=== PATIENT | female | born 1985 | race African-American/Black ===

== ENCOUNTER 2016-06-05 12:33 | Inpatient (IN) | payer OTHER ==
[~2016-06-05] VITALS: Ht 152.4 cm; Wt 66.7 kg
[2016-06-05 13:37] LABS: BASOPHILS % (AUTO) 0.9 % (0.0-2.0); EOSINOPHILS % (AUTO) 1.3 % (0.0-3.0); LYMPHOCYTES % (AUTO) 46.3 % (20.0-45.0); MEAN CORPUSCULAR HEMOGLOBIN 30.9 PG (27.0-31.0); MEAN CORPUSCULAR VOLUME 93 FL (80-99); MEAN PLATELET VOLUME 6.5 FL (6.5-10.1); MONOCYTES % (AUTO) 5.7 % (1.0-10.0); NEUTROPHILS % (AUTO) 45.8 % (45.0-75.0); PLATELET COUNT 335 K/UL (150-450); RED BLOOD COUNT 4.28 M/UL (4.20-5.40); RED CELL DISTRIBUTION WIDTH 11.2 % (11.6-14.8); WHITE BLOOD COUNT 9.2 K/UL (4.8-10.8)
[2016-06-05 13:52] LABS: ALANINE AMINOTRANSFERASE 15 U/L (3-33); ALBUMIN/GLOBULIN RATIO 1.7 (1.0-2.7); ANION GAP 16 (5-15); ASPARTATE AMINO TRANSFERASE 20 U/L (5-40); CALCIUM 9.6 mg/dL (8.6-10.2); CARBON DIOXIDE 26 mEQ/L (20-30); CHLORIDE 101 mEQ/L (98-107); CREATININE 0.8 mg/dL (0.5-0.9); GLOMERULAR FILTRATION RATE > 60 mL/min (>60); HEMOLYSIS 9; POTASSIUM 3.6 mEQ/L (3.4-4.9); SODIUM 143 mEQ/L (135-145); TOTAL PROTEIN 7.5 g/dL (6.6-8.7)
[2016-06-05 14:03] LABS: CKMB < 1.5 ng/mL (< 3.8)
--- NOTE | 2016-06-05 14:38 | Emergency Room Report ---
History of Present Illness General Chief Complaint: Pain Source: Patient Present Illness HPI 30-year-old female presents ED for evaluation. Patient referred here by Dr. Lockett. Patient states that 6 years ago she had silicone injections in her buttocks. States since the injection she's had persistent pain. Pain is a 10 out of 10. Sharp. Notes pain radiating from the buttock through the back and down both legs. No other aggravating relieving factors. Denies fevers or chills. Denies leg or motor weakness. Denies any other associated symptoms Allergies: Coded Allergies: PENICILLINS (Verified Allergy, Unknown, 06/05/16) Patient History Past Medical History: none Past Surgical History: none Pertinent Family History: none Social History: Denies: alcohol use, drug use, smoking Last Menstrual Period: UNKNOWN Now: No Immunizations: UTD Reviewed Nursing Documentation: PMH: Agreed, PSxH: Agreed Nursing Documentation-PMH Past Medical History: No Stated History Review of Systems All Other Systems: negative except mentioned in HPI Physical Exam Vital Signs Date Time Temp Pulse Resp B/P Pulse Ox O2 Delivery O2 Flow Rate FiO2 06/05/16 12:44 98.1 100 16 121/83 97 Room Air Sp02 EP Interpretation: reviewed, normal General Appearance: no apparent distress, alert, GCS 15, non-toxic Head: normocephalic Eyes: bilateral eye PERRL, bilateral eye normal inspection ENT: normal ENT inspection Neck: normal inspection Respiratory: chest non-tender, lungs clear, normal breath sounds, speaking full sentences Cardiovascular #1: normal inspection Gastrointestinal: normal bowel sounds, non tender, soft, non-distended, no guarding, no rebound Rectal: deferred Genitourinary: no CVA tenderness Musculoskeletal: back normal, gait/station normal, normal range of motion, non- tender Neurologic: alert, oriented x3, responsive, motor strength/tone normal, sensory intact, speech normal Psychiatric: normal inspection Skin: normal inspection Lymphatic: normal inspection Medical Decision Making Diagnostic Impression: Primary Impression: Adverse effect of silicone Qualified Codes: T49.3X5A - Adverse effect of emollients, demulcents and protectants, initial encounter Additional Impression: Intractable back pain ER Course Hospital Course 30-year-old female presents to ED with back pain, pain to buttocks s/p silicon injections Differential diagnoses include: allergic reaction, cellulitis, autoimmune reaction Clinical course Patient placed on stretcher. cardiac monitor. After initial history and physical I ordered labs, IV fluids, IV abx Labs - no leukocytosis, Hb/Hct stable. electrolytes ok. Patient will be admitted to the floor for further workup including MRI Case discussed with Dr. Smith and he agreed to accept the patient to his service for further care and support I feel this is a highly complex case requiring extensive working including EKG/ Rhythm strip, Xray/CT/US, Blood/urine lab work, repeat exams while in ED, and administration of strong opiates/narcotics for pain control, admission to hospital or close patient follow up. Diagnosis -intractable back pain, adverse reaction of silicon Patient admitted to floor in serious condition Labs Test 06/05/16 13:18 White Blood Count 9.2 K/UL (4.8-10.8) Red Blood Count 4.28 M/UL (4.20-5.40) Hemoglobin 13.2 G/DL (12.0-16.0) Hematocrit 40.0 % (37.0-47.0) Mean Corpuscular Volume 93 FL (80-99) Mean Corpuscular Hemoglobin 30.9 PG (27.0-31.0) Mean Corpuscular Hemoglobin Concent 33.0 G/DL (32.0-36.0) Red Cell Distribution Width 11.2 % (11.6-14.8) Platelet Count 335 K/UL (150-450) Mean Platelet Volume 6.5 FL (6.5-10.1) Neutrophils (%) (Auto) 45.8 % (45.0-75.0) Lymphocytes (%) (Auto) 46.3 % (20.0-45.0) Monocytes (%) (Auto) 5.7 % (1.0-10.0) Eosinophils (%) (Auto) 1.3 % (0.0-3.0) Basophils (%) (Auto) 0.9 % (0.0-2.0) Sodium Level 143 mEQ/L (135-145) Potassium Level 3.6 mEQ/L (3.4-4.9) Chloride Level 101 mEQ/L (98-107) Carbon Dioxide Level 26 mEQ/L (20-30) Anion Gap 16 (5-15) Blood Urea Nitrogen 7 mg/dL (7-23) Creatinine 0.8 mg/dL (0.5-0.9) Estimat Glomerular Filtration Rate > 60 mL/min (>60) Glucose Level 103 mg/dL (74-106) Lactic Acid Level 1.90 mmol/L (0.66-2.22) Calcium Level 9.6 mg/dL (8.6-10.2) Total Bilirubin 0.3 mg/dL (0.0-1.2) Aspartate Amino Transf (AST/SGOT) 20 U/L (5-40) Alanine Aminotransferase (ALT/SGPT) 15 U/L (3-33) Alkaline Phosphatase 90 U/L (35-104) Total Creatine Kinase 118 U/L (26-140) Creatine Kinase MB < 1.5 ng/mL (< 3.8) Creatine Kinase MB Relative Index 1.2 Total Protein 7.5 g/dL (6.6-8.7) Albumin 4.8 g/dL (3.5-5.2) Globulin 2.7 g/dL Albumin/Globulin Ratio 1.7 (1.0-2.7) Last Vital Signs Date Time Temp Pulse Resp B/P Pulse Ox O2 Delivery O2 Flow Rate FiO2 06/05/16 12:44 98.1 100 16 121/83 97 Room Air Status: improved Disposition: ADMITTED INPATIENT Condition: Serious Referrals: NOT CHOSEN EDMAR/,REFERRING (PCP) SULLY REYNOLDS M.D. Jun 05, 2016 14:38
[2016-06-05 15:09] VITALS: BP 114/75
[2016-06-05 16:00] VITALS: BP 117/82
[2016-06-05] MEDS ORDERED: Norco 10mg/325mg tab ORAL PRN (18:00)
[2016-06-05] MEDS ORDERED: Norco 5mg/325mg tab ORAL PRN (18:00)
[2016-06-05] MEDS ORDERED: Acetaminophen 650 MG SUPP RECTAL PRN ×2 (18:00)
[2016-06-05] MEDS ORDERED: Morphine Sulfate 2mg/ml Inj IVP PRN ×2 (18:00→18:07)
[2016-06-05 20:00] VITALS: BP 119/76
[2016-06-05] MEDS ORDERED: Milk of Magnesia 30ml Ud ORAL PRN (21:00)
[2016-06-05] MEDS ORDERED: Miralax 17gm pkt ORAL PRN (21:00)
--- NOTE | 2016-06-05 21:06 | History and Physical ---
History of Present Illness General Date patient seen: Jun 05, 2016 Time patient seen: 17:30 Reason for Hospitalization: Pain Present Illness HPI 30 y/o AA female who presents with severe buttocks pain, low back pain with BLE numbness and tingling. She takes advil at home for this pain but has increasingly had to rely on this for analgesia and has pain despite the advil. She did have a silicone injection in Jan 2010 into the buttocks area. For the last 2 years, she has had increasing low back pain, at times severe, along with numbness/tingling in her lower extremities. She also states she gets occasional dyspnea, particular at night while shes sleeping, she wakes up in the middle of the night short of breath. No chest pain, no fevers/chills. No fatigue/malaise, no abd pain or n/v. No fevers/chills. No smoking, drinks moderate amount of alcohol, denies recreational drug use. She has no other medical issues and does not take any other prescription medications. Allergies: Coded Allergies: PENICILLINS (Verified Allergy, Unknown, 06/05/16) Patient History History Provided By: Patient Healthcare decision maker Resuscitation status Advanced Directive on File Family History Family History: Patient reports no known family medical history. Social History Social History: (1) No significant social history Review of Systems Constitutional: Reports: no symptoms, Denies: chills, fever, malaise, other, see HPI, sweats, weakness Eye: Reports: no symptoms, Denies: acuity changes, blurred vision, discharge, double vision, eye pain, nose congestion, nose pain, other, see HPI, tearing ENT: Denies: ear discharge, ear pain, hearing loss, mouth pain, nasal discharge , no symptoms, nose congestion, nose pain, other, see HPI, throat pain, throat swelling Respiratory: Reports: shortness of breath Cardiovascular: Reports: PND Gastrointestinal: Denies: abdominal pain, constipation, diarrhea, hematemesis, melena, nausea, no symptoms, other, see HPI, vomiting Genitourinary: Denies: discharge, dysuria, frequency, hematuria, incontinence, no symptoms, other, pain, retention, see HPI, urgency, vag bleed/dc Musculoskeletal: Reports: back pain, muscle pain Skin: Denies: change in color, change in hair/nails, dryness, lesions, no symptoms, other, rash, see HPI Neurological: Denies: dizziness, focal weakness, headache, no symptoms, numbness, other, paresthesia, see HPI, seizure, syncope, tingling, tremors Endocrine: Denies: excessive sweating, flushing, increased thirst, increased urine, intolerance to temperature, no symptoms, other, see HPI, unexplained weight loss Hematologic/Lymphatic: Denies: anemia, blood clots, diathesis, easy bleeding, easy bruising, no symptoms, other, see HPI, swollen glands Physical Exam General Appearance: WD/WN, no apparent distress, alert Lines, tubes and drains: peripheral HEENT: normocephalic, atraumatic, anicteric, mucous membranes moist Neck: non-tender, normal alignment, supple Respiratory/Chest: chest wall non-tender, lungs clear, normal breath sounds, no respiratory distress, no accessory muscle use Cardiovascular/Chest: normal peripheral pulses, normal rate, regular rhythm, no gallop/murmur, no JVD Abdomen: normal bowel sounds, non tender, soft, no organomegaly Extremities: normal range of motion, non-tender, normal inspection, no calf tenderness Skin Exam: normal pigmentation, warm/dry, no diaphoresis Neurologic: alert, oriented x 3, responsive, normal mood/affect Physical Exam Narrative Buttocks area- no obvious erythema, tenderness, some rubor, mildly indurated in the medial aspect of each gluteal area Last 24 Hour Vital Signs Date Time Temp Pulse Resp B/P Pulse Ox O2 Delivery O2 Flow Rate FiO2 06/05/16 16:00 98.2 91 18 117/82 100 Room Air 06/05/16 15:34 98.1 16 114/75 97 Room Air 06/05/16 15:17 98.1 16 114/75 97 Room Air 06/05/16 15:09 98.1 16 114/75 97 Room Air 06/05/16 12:44 98.1 100 16 121/83 97 Room Air Laboratory Tests Test 06/05/16 13:18 White Blood Count 9.2 K/UL (4.8-10.8) Red Blood Count 4.28 M/UL (4.20-5.40) Hemoglobin 13.2 G/DL (12.0-16.0) Hematocrit 40.0 % (37.0-47.0) Mean Corpuscular Volume 93 FL (80-99) Mean Corpuscular Hemoglobin 30.9 PG (27.0-31.0) Mean Corpuscular Hemoglobin Concent 33.0 G/DL (32.0-36.0) Red Cell Distribution Width 11.2 % (11.6-14.8) L Platelet Count 335 K/UL (150-450) Mean Platelet Volume 6.5 FL (6.5-10.1) Neutrophils (%) (Auto) 45.8 % (45.0-75.0) Lymphocytes (%) (Auto) 46.3 % (20.0-45.0) H Monocytes (%) (Auto) 5.7 % (1.0-10.0) Eosinophils (%) (Auto) 1.3 % (0.0-3.0) Basophils (%) (Auto) 0.9 % (0.0-2.0) Sodium Level 143 mEQ/L (135-145) Potassium Level 3.6 mEQ/L (3.4-4.9) Chloride Level 101 mEQ/L (98-107) Carbon Dioxide Level 26 mEQ/L (20-30) Anion Gap 16 (5-15) H Blood Urea Nitrogen 7 mg/dL (7-23) Creatinine 0.8 mg/dL (0.5-0.9) Estimat Glomerular Filtration Rate > 60 mL/min (>60) Glucose Level 103 mg/dL (74-106) Lactic Acid Level 1.90 mmol/L (0.66-2.22) Calcium Level 9.6 mg/dL (8.6-10.2) Total Bilirubin 0.3 mg/dL (0.0-1.2) Aspartate Amino Transf (AST/SGOT) 20 U/L (5-40) Alanine Aminotransferase (ALT/SGPT) 15 U/L (3-33) Alkaline Phosphatase 90 U/L (35-104) Total Creatine Kinase 118 U/L (26-140) Creatine Kinase MB < 1.5 ng/mL (< 3.8) Creatine Kinase MB Relative Index 1.2 Total Protein 7.5 g/dL (6.6-8.7) Albumin 4.8 g/dL (3.5-5.2) Globulin 2.7 g/dL Albumin/Globulin Ratio 1.7 (1.0-2.7) Laboratory Tests Test 06/05/16 13:18 White Blood Count 9.2 K/UL (4.8-10.8) Red Blood Count 4.28 M/UL (4.20-5.40) Hemoglobin 13.2 G/DL (12.0-16.0) Hematocrit 40.0 % (37.0-47.0) Mean Corpuscular Volume 93 FL (80-99) Mean Corpuscular Hemoglobin 30.9 PG (27.0-31.0) Mean Corpuscular Hemoglobin Concent 33.0 G/DL (32.0-36.0) Red Cell Distribution Width 11.2 % (11.6-14.8) L Platelet Count 335 K/UL (150-450) Mean Platelet Volume 6.5 FL (6.5-10.1) Neutrophils (%) (Auto) 45.8 % (45.0-75.0) Lymphocytes (%) (Auto) 46.3 % (20.0-45.0) H Monocytes (%) (Auto) 5.7 % (1.0-10.0) Eosinophils (%) (Auto) 1.3 % (0.0-3.0) Basophils (%) (Auto) 0.9 % (0.0-2.0) Sodium Level 143 mEQ/L (135-145) Potassium Level 3.6 mEQ/L (3.4-4.9) Chloride Level 101 mEQ/L (98-107) Carbon Dioxide Level 26 mEQ/L (20-30) Anion Gap 16 (5-15) H Blood Urea Nitrogen 7 mg/dL (7-23) Creatinine 0.8 mg/dL (0.5-0.9) Estimat Glomerular Filtration Rate > 60 mL/min (>60) Glucose Level 103 mg/dL (74-106) Lactic Acid Level 1.90 mmol/L (0.66-2.22) Calcium Level 9.6 mg/dL (8.6-10.2) Total Bilirubin 0.3 mg/dL (0.0-1.2) Aspartate Amino Transf (AST/SGOT) 20 U/L (5-40) Alanine Aminotransferase (ALT/SGPT) 15 U/L (3-33) Alkaline Phosphatase 90 U/L (35-104) Total Creatine Kinase 118 U/L (26-140) Creatine Kinase MB < 1.5 ng/mL (< 3.8) Creatine Kinase MB Relative Index 1.2 Total Protein 7.5 g/dL (6.6-8.7) Albumin 4.8 g/dL (3.5-5.2) Globulin 2.7 g/dL Albumin/Globulin Ratio 1.7 (1.0-2.7) Height (Feet): 5 Height (Inches): 0.00 Weight (Pounds): 147 Medications Current Medications Medications (Trade) Dose Ordered Sig/Josué Route PRN Reason Start Time Stop Time Status Last Admin Dose Admin Acetaminophen (Tylenol) 650 mg Q4H PRN ORAL Mild Pain (Pain Scale 1-3) 06/05/16 18:00 07/05/16 17:59 Acetaminophen (Tylenol) 650 mg Q4H PRN ORAL T>100.5 06/05/16 18:00 07/05/16 17:59 Acetaminophen (Tylenol) 650 mg Q4H PRN RECTAL Mild Pain (Pain Scale 1-3) 06/05/16 18:00 07/05/16 17:59 Acetaminophen (Tylenol) 650 mg Q4H PRN RECTAL T>100.5 06/05/16 18:00 07/05/16 17:59 Acetaminophen/ Hydrocodone Bitart ([place] 10/325) 1 ea Q4H PRN ORAL Severe Pain (Pain Scale 7-10) 06/05/16 18:00 06/12/16 17:59 Acetaminophen/ Hydrocodone Bitart ([place] 5/325) 1 tab Q4H PRN ORAL Moderate Pain (Pain Scale 4-6) 06/05/16 18:00 06/12/16 17:59 Bisacodyl (Dulcolax) 10 mg HSPRN PRN RECTAL Constipation 06/05/16 21:00 07/05/16 20:59 Ciprofloxacin (Cipro 400mg/ 200ml premix bag) 200 ml @ 200 mls/hr Q12HR IV 06/05/16 21:00 06/12/16 20:59 06/05/16 20:44 Dextrose (Dextrose 50%) STAT PRN IV Hypoglycemia 06/05/16 18:00 07/05/16 17:59 Diphenhydramine HCl (Benadryl) 25 mg Q6H PRN ORAL Itching/Pruritis 06/05/16 18:00 07/05/16 17:59 Heparin Sodium (Porcine) (Heparin 5000 units/ml) 5,000 units EVERY 12 HOURS SUBQ 06/06/16 09:00 07/06/16 08:59 Magnesium Hydroxide (Mom) 30 ml HSPRN PRN ORAL Constipation 06/05/16 21:00 07/05/16 20:59 Morphine Sulfate 2 mg 2 mg Q4H PRN IVP PAIN 4-10 06/05/16 18:07 06/12/16 17:59 Ondansetron HCl (Zofran) 4 mg Q6H PRN IVP Nausea & Vomiting 06/05/16 18:00 07/05/16 17:59 Polyethylene Glycol (Miralax) 17 gm HSPRN PRN ORAL Constipation 06/05/16 21:00 07/05/16 20:59 Assessment/Plan Problem List: (1) Intractable back pain Assessment & Plan: Admit to inpatient Will need expedited workup of severe low back pain, s/p gluteal silicone injection Extensive lab workup to r/o DAFNE syndrome given classical symptoms ad presentation MRI L spine and pelvis to r/o fluid collection, cord compression, soft tissue necrosis Check urine f/u blood cultures Start IV cipro (pt has penicillin allergy) ICD Codes: M54.9 - Dorsalgia, unspecified SNOMED: 418604490 (2) PND (paroxysmal nocturnal dyspnea) Assessment & Plan: Check Echo to r/o CHF as etiology of dyspnea ICD Codes: R06.00 - Dyspnea, unspecified SNOMED: [id number] SADIE REYES Jun 05, 2016 21:06
[2016-06-06 00:48] VITALS: BP 114/71
[2016-06-06 07:56] LABS: BASOPHILS % (AUTO) 0.7 % (0.0-2.0); LYMPHOCYTES % (AUTO) 44.3 % (20.0-45.0); MEAN CORPUSCULAR HEMOGLOBIN 30.4 PG (27.0-31.0); MEAN CORPUSCULAR HGB CONC 32.9 G/DL (32.0-36.0); MEAN CORPUSCULAR VOLUME 93 FL (80-99); MEAN PLATELET VOLUME 6.5 FL (6.5-10.1); PLATELET COUNT 335 K/UL (150-450); RED BLOOD COUNT 4.06 M/UL (4.20-5.40); RED CELL DISTRIBUTION WIDTH 10.9 % (11.6-14.8); WHITE BLOOD COUNT 9.8 K/UL (4.8-10.8)
[2016-06-06] MEDS ORDERED: 1/2 NS 1000ml IV ONE (07:59)
[2016-06-06] MEDS ORDERED: Tubing IV Secondary IV ONE (07:59)
[2016-06-06] MEDS ORDERED: NS 550ML IV ONE (07:59)
[2016-06-06 08:52] LABS: ANION GAP 16 (5-15); CALCIUM 8.9 mg/dL (8.6-10.2); CARBON DIOXIDE 24 mEQ/L (20-30); CHLORIDE 101 mEQ/L (98-107); CREATININE 0.7 mg/dL (0.5-0.9); GLOMERULAR FILTRATION RATE > 60 mL/min (>60); HEMOLYSIS 8; POTASSIUM 3.7 mEQ/L (3.4-4.9); SODIUM 141 mEQ/L (135-145)
[2016-06-06] MEDS ORDERED: Heparin 5000 units/ml inj SUBQ SCH (09:00)
--- NOTE | 2016-06-06 13:31 | Discharge Summary ---
Discharge Summary Hospital Course Date of Admission Jun 05, 2016 at 14:08 Date of Discharge Jun 06, 2016 at 08:00 Admitting Diagnosis intractable back pain Reason for Hospitalization: carlos kearney HPI Etienne Benito is a 30 year old female who was admitted on Jun 05, 2016 at 14: 08 for Butt And Back Pain Consultations None Procedures None Hospital Course Please see HPI in my H+P. Pt was admitted overnight for workup of intractable low back pain, and also lab w?u to r/o DAFNE syndrome given hx of silicone injections in her buttocks area. The pt left AMA early this morning and did not want to stay in the hospital. Discharge Condition Upon Discharge: other - ama Discharge Disposition Patient left AMA Discharge Diagnoses: SADIE REYES Jun 06, 2016 13:31
[2016-06-06] MEDS ORDERED: NKM (13:57)
[2016-06-07 10:17] LABS: RHEUMATOID FACTOR SCREEN <10.0 IU/mL (0.0-13.9)
[2016-06-07 12:10] LABS: IMMUNOGLOBULIN A 164 mg/dL (87-352); IMMUNOGLOBULIN G 1137 mg/dL (700-1600); IMMUNOGLOBULIN M 86 mg/dL (26-217)
[2016-06-09 09:35] LABS: A/G RATIO 1.5 (0.7-1.7); ABNORMAL PROTEIN BAND 1 Not Observed g/dL (Not Observed); ALBUMIN 3.8 g/dL (2.9-4.4); ALPHA-1 GLOBULIN 0.1 g/dL (0.0-0.4); ALPHA-2 GLOBULIN 0.5 g/dL (0.4-1.0); BETA GLOBULIN 0.9 g/dL (0.7-1.3); CD3 ABSOLUTE 2520 /uL (622-2402); CD4 ABSOLUTE 1764 /uL (359-1519); CD8 ABSOLUTE 764 /uL (109-897); GAMMA GLOBULIN 1.1 g/dL (0.4-1.8); GLOBULIN, TOTAL 2.6 g/dL (2.2-3.9); IMMUNCOMPLEX BY C1Q BINDING 1.5 ug Eq/mL (.); LYMPHOCYTES ABSOLUTE 4.2 x10E3/uL (0.7-3.1); LYMPHS 46 % (.); TOTAL PROTEIN 6.4 g/dL (6.0-8.5); WBC 9.2 x10E3/uL (3.4-10.8)
[2016-06-09 09:36] LABS: ANTI-NUCLEAR ANTIBODY SCREEN Negative (Negative); SS-B/La SJOGRENS ANTIBODY <0.2 AI (0.0-0.9); SSA/Ro SJOGRENS ANTIBODY 0.9 AI (0.0-0.9)
== END 2016-06-06 08:00 | disposition left against medical advice (07) | DRG 552 ==
LOC: EMR 13:39 → EDBEDREQ 13:55 → 4E 14:08 → EDBEDREQ 14:46 → 3E 14:54
DX: M54.89 Other dorsalgia (principal); T49.3X5A Adverse effect of emollients, demulcents and protectants, initial encounter; Z88.0 Allergy status to penicillin; Y92.89 Other specified places as the place of occurrence of the external cause
CPT/HCPCS: 29130; 36415; 80048; 80053; 81025; 82550; 82553; 82784; 83605; 84165; 85025; 85613; 85651; 85730; 86039; 86140; 86162; 86235; 86332; 86334; 86360; 86431; 87040

== ENCOUNTER 2016-06-06 13:25 | Inpatient (IN) | payer OTHER ==
[~2016-06-06] VITALS: Ht 152.4 cm; Wt 66.2 kg
[2016-06-06] MEDS ORDERED: NKM (13:57)
--- NOTE | 2016-06-06 14:06 | Emergency Room Report ---
History of Present Illness General Chief Complaint: General Complaint Source: Patient Present Illness HPI Patient is a 30-year-old female who presented after increased low back pain and buttock pain. The patient had recently left AGAINST MEDICAL ADVICE from the hospital. The patient was noted to have worsening pain to the areas of previous self injection. She denied vomiting. She had some low back pain. Patient was not having any abdominal pain or diarrhea. She denied being . Allergies: Coded Allergies: PENICILLINS (Verified Allergy, Unknown, 06/05/16) Patient History Past Medical History: see triage record Last Menstrual Period: Six months ago - depo Now: No Reviewed Nursing Documentation: PMH: Agreed, PSxH: Agreed Nursing Documentation-PMH Past Medical History: No Stated History Hx Cardiac Problems: No Hx Cancer: No Hx Gastrointestinal Problems: No Hx Neurological Problems: No Review of Systems All Other Systems: negative except mentioned in HPI Physical Exam Vital Signs Date Time Temp Pulse Resp B/P Pulse Ox O2 Delivery O2 Flow Rate FiO2 06/06/16 13:47 99.1 90 16 122/84 99 Room Air Sp02 EP Interpretation: reviewed, normal General Appearance: normal inspection, well appearing, no apparent distress, alert, GCS 15, non-toxic Head: atraumatic ENT: normal ENT inspection, hearing grossly normal, normal voice Neck: normal inspection, full range of motion, supple, no bony tend Respiratory: normal inspection, lungs clear, normal breath sounds, no respiratory distress, no retraction, no wheezing Cardiovascular #1: regular rate, rhythm, no edema Gastrointestinal: normal inspection, normal bowel sounds, non tender, soft, no guarding, no hernia Genitourinary: no CVA tenderness Musculoskeletal: normal inspection, back normal, normal range of motion Neurologic: normal inspection, alert, oriented x3, responsive, assistant men's soccer coach III-XII nml as tested, speech normal Psychiatric: normal inspection, judgement/insight normal, mood/affect normal Skin: normal inspection, normal color, no rash Medical Decision Making Diagnostic Impression: Primary Impression: Intractable back pain ER Course Patient presented for low back pain.Differential diagnosis included but was not limited to herniated disc, cauda equina syndrome, abdominal aortic aneurysm, perforated ulcer, spinal epidural abscess, spinal stenosis, lumbar fracture, metastatic lesion, pyelonephritis. Because of complexity of patient's case and imaging studies were ordered. I laboratory results from yesterday were reviewed. Patient was discussed with Dr. Smith who agreed to admit the patient Last Vital Signs Date Time Temp Pulse Resp B/P Pulse Ox O2 Delivery O2 Flow Rate FiO2 06/06/16 13:47 99.1 90 16 122/84 99 Room Air Status: unchanged Disposition: ADMITTED INPATIENT Condition: Serious Chidi Calero Jun 06, 2016 14:06
[2016-06-06 14:09] VITALS: BP 122/84
[2016-06-06 15:51] VITALS: BP 110/77
[2016-06-06] MEDS ORDERED: Milk of Magnesia 30ml Ud ORAL PRN (17:45)
[2016-06-06] MEDS ORDERED: LORazepam 1mg tab ORAL PRN (17:45)
[2016-06-06] MEDS ORDERED: Mylanta II UD 30ml ORAL PRN (17:45)
[2016-06-06] MEDS ORDERED: Miralax 17gm pkt ORAL PRN (17:45)
[2016-06-06] MEDS ORDERED: Morphine Sulfate 4mg/ml Inj IVP PRN (17:45)
[2016-06-06] MEDS ORDERED: Morphine Sulfate 2mg/ml Inj IVP PRN (17:45)
[2016-06-06 17:52] VITALS: BP 110/68
--- NOTE | 2016-06-06 17:59 | History and Physical ---
History of Present Illness General Reason for Hospitalization: General Complaint Present Illness HPI 30 y/o AA female who presents with severe buttocks pain, low back pain with BLE numbness and tingling. She takes advil at home for this pain but has increasingly had to rely on this for analgesia and has pain despite the advil. She did have a silicone injection in Jan 2010 into the buttocks area. For the last 2 years, she has had increasing low back pain, at times severe, along with numbness/tingling in her lower extremities. She also states she gets occasional dyspnea, particular at night while shes sleeping, she wakes up in the middle of the night short of breath. No chest pain, no fevers/chills. No fatigue/malaise, no abd pain or n/v. No fevers/chills. No smoking, drinks moderate amount of alcohol, denies recreational drug use. She has no other medical issues and does not take any other prescription medications. Pt left earlier this morning AMA. She apparently believed that she was better and did not need to be treated, she then started to have recurrent symptoms and changed her mind, returning to the hospital ER. Allergies: Coded Allergies: PENICILLINS (Verified Allergy, Unknown, 06/05/16) Medication History Scheduled No Known Medications* (NKM - No Known Medications*), 0 ., (Reported) Patient History Healthcare decision maker Resuscitation status Advanced Directive on File Family History Family History: Patient reports no known family medical history. Social History Social History: (1) No significant social history (2) Family history in first degree relatives is unremarkable Review of Systems Constitutional: Denies: chills, fever, malaise, no symptoms, other, see HPI, sweats, weakness Eye: Denies: acuity changes, blurred vision, discharge, double vision, eye pain , no symptoms, nose congestion, nose pain, other, see HPI, tearing ENT: Denies: ear discharge, ear pain, hearing loss, mouth pain, nasal discharge , no symptoms, nose congestion, nose pain, other, see HPI, throat pain, throat swelling Respiratory: Reports: shortness of breath Cardiovascular: Denies: PND, chest pain, edema, no symptoms, other, palpitations, see HPI, syncope Gastrointestinal: Denies: abdominal pain, constipation, diarrhea, hematemesis, melena, nausea, no symptoms, other, see HPI, vomiting Genitourinary: Denies: discharge, dysuria, frequency, hematuria, incontinence, no symptoms, other, pain, retention, see HPI, urgency, vag bleed/dc Musculoskeletal: Reports: back pain, muscle pain Skin: Denies: change in color, change in hair/nails, dryness, lesions, no symptoms, other, rash, see HPI Psychiatric: Denies: HI, SI, anxiety, depressed feelings, emotional problems, hallucinations, no symptoms, other, prior hx, see HPI Neurological: Reports: numbness, paresthesia, tingling Endocrine: Denies: excessive sweating, flushing, increased thirst, increased urine, intolerance to temperature, no symptoms, other, see HPI, unexplained weight loss Hematologic/Lymphatic: Denies: anemia, blood clots, diathesis, easy bleeding, easy bruising, no symptoms, other, see HPI, swollen glands Physical Exam General Appearance: WD/WN, no apparent distress, alert Lines, tubes and drains: peripheral HEENT: normocephalic, atraumatic, anicteric, mucous membranes moist Neck: non-tender, normal alignment, supple Respiratory/Chest: chest wall non-tender, lungs clear, normal breath sounds, no respiratory distress, no accessory muscle use Cardiovascular/Chest: normal rate, regular rhythm, no gallop/murmur, no JVD Abdomen: normal bowel sounds, non tender, soft Extremities: normal range of motion, non-tender, normal inspection, no calf tenderness Skin Exam: normal pigmentation, warm/dry, no diaphoresis Neurologic: alert, oriented x 3, responsive, normal mood/affect Physical Exam Narrative Buttocks: multiple areas of focal tenderness, no erythema, mild rubor Last 24 Hour Vital Signs Date Time Temp Pulse Resp B/P Pulse Ox O2 Delivery O2 Flow Rate FiO2 06/06/16 15:51 98.7 81 18 110/77 99 Room Air 06/06/16 14:09 99.1 79 16 122/84 99 Room Air 06/06/16 13:47 99.1 90 16 122/84 99 Room Air Height (Feet): 5 Weight (Pounds): 146 Assessment/Plan Problem List: (1) Intractable back pain Assessment & Plan: Admit to inpatient Will need expedited workup of severe low back pain, s/p gluteal silicone injection Extensive lab workup to r/o DAFNE syndrome given classical symptoms and presentation MRI L spine and pelvis to r/o fluid collection, cord compression, soft tissue necrosis Check urine f/u blood cultures Start IV cipro ICD Codes: M54.9 - Dorsalgia, unspecified SNOMED: [id number] SADIE REYES Jun 06, 2016 17:59
[2016-06-06] MEDS: Docusate 100mg cap ORAL SCH (21:00)
[2016-06-07] VITALS (14 sets, daily range): BP systolic 100–139; BP diastolic 58–94
--- NOTE | 2016-06-07 01:21 | Consultation ---
Consult Note Consult Note job#[id number] Tavares Carolina M.D. Jun 07, 2016 01:21
--- NOTE | 2016-06-07 05:18 | Consultation ---
DATE OF CONSULTATION: 06/06/2016 HISTORY OF PRESENT ILLNESS: This is a 30-year-old female with a history of severe buttock pain and lower back pain with bilateral lower extremity numbness and tingling. The patient has had silicone injections in January 2010 into her buttock area and for the past two years, she has been presenting with increasing pain, tingling, and numbness. She was recently hospitalized for correction surgery to remove this silicone from that area. She has left against medical advice. Today, she is back again to the ER. During the evaluation, we discussed her concerns and risks and benefits of the surgery. We also discussed that it is impossible to remove all the foreign material and silicone. Therefore, there will be some silicone left in her buttock area and body. We also discussed that there is a possibility that some of the silicone have migrated or continue to migrate in the future. We also discussed that she may indeed several surgeries over many years and there is a chance that it could be cosmetically disfiguring. We also discussed that there is a chance that the patient might not improve after the surgery. The patient was able to understand process, communicate, and appreciate the information was given to her and she stated that she actually has done her own research and she is aware of all the risks involved. We also discussed the possibility of infection after surgery. The patient endorsed some anxiety and concern regarding the surgery, however it appears that it is a normal reaction to the situation she is. I have offered her antibiotics and the patient was adamant against taking medication, however, she was open to taking low-dose of sleeping-aid medication. PAST MEDICAL HISTORY: Not significant. MEDICATIONS: Ibuprofen for pain. ALLERGIES: Penicillin. FAMILY HISTORY: Not significant. SUBSTANCE ABUSE HISTORY: No history of illicit drug use or alcohol. Nonsmoker. MENTAL STATUS EXAMINATION: The patient is alert and oriented x4, cooperative, and pleasant. Mood is anxious. Affect is constricted. Congruent mood. Thought process was concrete. Thought content, there was not any suicidal or homicidal ideation. Insight and judgment is fair. ASSESSMENT AND PLAN: The patient is currently medically stable. She is able to understand and process the information that was given to her. She has capacity to give consent to surgery. She is not suffering from any major mental illness that may interfere with signing a consent form. She has never been treated with psychotropics and she is not on current psychotropic medications. Tavares Carolina M.D. DR: MARY JOB#: [id number] CC:
[2016-06-07 06:56] LABS: PROTHROMBIN TIME 10.5 SEC (9.30-11.50)
[2016-06-07 07:18] LABS: ANION GAP 15 (5-15); CARBON DIOXIDE 23 mEQ/L (20-30); CHLORIDE 103 mEQ/L (98-107); CREATININE 0.7 mg/dL (0.5-0.9); GLOMERULAR FILTRATION RATE > 60 mL/min (>60); HEMOLYSIS 7; POTASSIUM 3.9 mEQ/L (3.4-4.9); SODIUM 141 mEQ/L (135-145)
[2016-06-07] MEDS: Docusate 100mg cap ORAL SCH ×2 (08:39→20:42)
--- NOTE | 2016-06-07 11:36 | Anethesia Preoperative Eval ---
Doug Meade MD 06/07/16 1136: Anesthesia Pre-op PMH/ROS General Date of Evaluation: Jun 07, 2016 Anesthesiologist: Kyaw ASA Score: ASA 1 Mallampati Score Class I : Soft palate, uvula, fauces, pillars visible Class II: Soft palate, uvula, fauces visible Class III: Soft palate, base of uvula visible Class IV: Only hard plate visible Mallampati Classification: Class I Surgeon: ISSAC Diagnosis: Back Pain Surgical Procedure: Staged Debridement Necrotic Tissue Buttock and Back Anesthesia History: none Family History: no anesthesia problems Allergies: Coded Allergies: PENICILLINS (Verified Allergy, Unknown, 06/05/16) Medications: see eMAR Past Medical History Musculoskeletal/Integumentary: Reports: other - Abscessess Baack And Buttock Anesthesia Pre-op Phys. Exam Physician Exam Last Vital Signs Date Time Temp Pulse Resp B/P Pulse Ox O2 Delivery O2 Flow Rate FiO2 06/07/16 08:05 98.1 79 18 128/63 97 Room Air Constitutional: NAD Neurologic: CN 2-12 intact Cardiovascular: RRR Respiratory: CTA Gastrointestinal: S/NT/ND Airway Exam Mallampati Score: Class I MO: full ROM: full Teeth: intact Anesthesia Pre-op A/P Labs Hematology Test 06/07/16 05:40 White Blood Count Pending Lymphocytes Pending Erythrocyte Sedimentation Rate 10 MM/HR (0-20) Coagulation Test 06/07/16 05:40 Prothrombin Time 10.5 SEC (9.30-11.50) Prothromb Time International Ratio 1.0 (0.9-1.1) Activated Partial Thromboplast Time 27 SEC (23-33) Lupus Anticoagulant Pending Lupus Anticoagulant PTT Baseline Pending Lupus Anticoag DRVVT Screen Ratio Pending DRVVT Confirmation Interpretation Pending Hexagonal Phase Comment Pending Chemistry Test 06/07/16 05:40 Sodium Level 141 mEQ/L (135-145) Potassium Level 3.9 mEQ/L (3.4-4.9) Chloride Level 103 mEQ/L (98-107) Carbon Dioxide Level 23 mEQ/L (20-30) Anion Gap 15 (5-15) Blood Urea Nitrogen 10 mg/dL (7-23) Creatinine 0.7 mg/dL (0.5-0.9) Estimat Glomerular Filtration Rate > 60 mL/min (>60) Glucose Level 87 mg/dL (74-106) Calcium Level 9.0 mg/dL (8.6-10.2) C-Reactive Protein, Quantitative < 0.3 mg/dL (< 0.5) Total Protein (PEP) Pending Albumin (PEP) Pending Globulin (PEP) Pending Albumin/Globulin Ratio Pending Xjdrq-5-Jfyrbxqga Pending Nntxi-0-Jhhfhsnds Pending Beta Globulins Pending Beta Gamma Globulin Pending PEP Abnormal Protein Bands Pending Protein Electrophoresis Interpret Pending Angiotensin Converting Enzyme Pending Urine Test Test 06/07/16 11:00 Urine HCG, Qualitative Negative Risk Assessment & Plan Assessment: ASA 1 Plan: GA, Glidescope, BIS Status Change Before Surgery: No Pre-Antibiotics Given Within 1 Hr of Incision: Yes DEREJE SADLER M.D. 06/07/16 1356: Anesthesia Pre-op PMH/ROS General Date of Evaluation: Jun 07, 2016 Anesthesiologist: Steven ASA Score: ASA 1 Mallampati Classification: Class II Surgeon: Issac Diagnosis: Necrotic bilateal buttock and lower back tissue Surgical Procedure: Staged debriedment of bilateral buttock and low back necrotic soft tissue Anesthesia History: none Family History: no anesthesia problems Allergies: Coded Allergies: PENICILLINS (Verified Allergy, Unknown, 06/05/16) Medications: see eMAR Past Medical History Cardiovascular: Denies: CAD, HTN, [place], arrhythmia, other, valve dz Pulmonary: Denies: COPD, [place], asthma, other Gastrointestinal/Genitourinary: Denies: CRI, ESRD, GERD, other Neurologic/Psychiatric: Denies: CVA, TIA, dementia, depression/anxiety, other Endocrine: Denies: DM, hypothyroidism, other, steroids HEENT: Denies: SENECA-CAYUGA (L), SENECA-CAYUGA (R), cataract (L), cataract (R), glaucoma, other Hematology/Immune: Denies: DVT, anemia, bleeding disorder, other Musculoskeletal/Integumentary: Denies: DDD, DJD, OA, RA, edema, other PSxH Narrative: Denies Anesthesia Pre-op Phys. Exam Physician Exam see chart Constitutional: NAD Cardiovascular: RRR Respiratory: CTA Airway Exam Mallampati Score: Class I MO: full ROM: full Teeth: intact Anesthesia Pre-op A/P Labs see chart Risk Assessment & Plan Assessment: ASA I Plan: GA-ETT Status Change Before Surgery: No Pre-Antibiotics Drug: Clindamycin 900mg Given Within 1 Hr of Incision: Yes Time Given: 13:30 Doug Meade MD Jun 07, 2016 11:36 DEREJE SADLER M.D. Jun 07, 2016 13:56
[2016-06-07] MEDS ORDERED: NS Irrig 1000ml ONE (13:00)
[2016-06-07] MEDS ORDERED: Dexamethasone 4mg/ml vial ONE (13:00)
[2016-06-07] MEDS ORDERED: Zemuron 50mg/5ml Inj IV ONE (13:00)
[2016-06-07] MEDS ORDERED: Lidocaine 1% MPF 10mg/ml 5ml ONE (13:00)
[2016-06-07] MEDS ORDERED: Metoclopramide 10mg/2ml Inj ONE (13:00)
[2016-06-07] MEDS ORDERED: Propofol 10mg/ml 20ml IV ONE (13:00)
[2016-06-07] MEDS ORDERED: fentaNYL 250mcg/5ml ONE (13:00)
[2016-06-07] MEDS ORDERED: Midazolam 2mg/2ml Inj ONE (13:00)
[2016-06-07] MEDS ORDERED: Sterile Water Irrig 1000ml IRRIG ONE (13:00)
[2016-06-07] MEDS ORDERED: LR 1000ml ONE (13:00)
--- NOTE | 2016-06-07 13:12 | Pre-Procedure Note/Attestation ---
Pre-Procedure Note/Attestation Complete Prior to Procedure Planned Procedure: bilateral Procedure Narrative: b/l buttock and back soft tissue necrosis, flap delay and vac placement Indications for Procedure Pre-Operative Diagnosis: b/l buttock and back soft tissue necrosis and cellulitis Attestation I attest that I discussed the nature of the procedure; its benefits; risks and complications; and alternatives (and the risks and benefits of such alternatives ), prior to the procedure, with the patient (or the patient's legal public service representative). I attest that, if there was a reasonable possibility of needing a blood transfusion, the patient (or the patient's legal public service representative) was given the [place] Department of [employer] Services standardized written summary, pursuant to the [place] Blood Safety Act ([place] Health and Safety Code # 1645, as amended). I attest that I re-evaluated the patient just prior to the surgery and that there has been no change in the patient's H&P, except as documented below: Josephine Davenport M.D. Jun 07, 2016 13:12
[2016-06-07] MEDS ORDERED: Bacitracin 50000 Units Vial ONE (13:42)
[2016-06-07] MEDS ORDERED: Clindamycin 6 ML ONE (13:42)
[2016-06-07] MEDS ORDERED: LR 1000ml 1,000 ML IVLG SCH (13:57)
--- NOTE | 2016-06-07 13:57 | Immediate Post-Op Evaluation ---
Immediate Post-Op Evalulation Immediate Post-Op Evalulation Procedure: Staged debriedment of bilateral buttock and low back soft tissue Date of Evaluation: Jun 07, 2016 Time of Evaluation: 15:16 IV Fluids: 1.2L Blood Products: 0 Estimated Blood Loss: 25 Urinary Output: 200 Blood Pressure Systolic: 100 Blood Pressure Diastolic: 66 Pulse Rate: 104 Respiratory Rate: 14 O2 Sat by Pulse Oximetry: 99 Temperature (Fahrenheit): 97.5 Pain Score (1-10): 0 Nausea: No Vomiting: No Complications 0 Patient Status: awake, reacts, patent, none Hydration Status: adequate Drug: Clindamycin 900mg Given Within 1 Hr of Incision: Yes Time Given: 13:30 DEREJE SADLER M.D. Jun 07, 2016 13:57
[2016-06-07] MEDS ORDERED: Labetalol 5mg/ml 20ml vial IV PRN (14:00)
[2016-06-07] MEDS ORDERED: DiphenhydrAMINE 50mg/ml Inj IVP PRN (14:00)
[2016-06-07] MEDS ORDERED: Ketorolac 30mg Inj IV PRN (14:00)
[2016-06-07] MEDS ORDERED: fentaNYL 100 mcg/2 mL IV PRN (14:00)
[2016-06-07] MEDS ORDERED: Midazolam 2mg/2ml Inj IVP PRN (14:00)
[2016-06-07] MEDS ORDERED: LORazepam Inj 2mg/ml 1ml IV PRN (14:00)
[2016-06-07] MEDS ORDERED: Metoclopramide 10mg/2ml Inj IVP PRN (14:00)
--- NOTE | 2016-06-07 14:00 | Diagnostic Imaging Report ---
Indication: History of silicone injection into buttocks, checking for distribution, preoperative for removal Technique: Coronal and axial T1 fast spin echo, coronal FSE IR, axial FSE STIR, axial T2 fast heart FSE with and without fat saturation Comparison: None Findings: Extensive nodularity is seen within the bilateral buttock subcutaneous fat. Nodules demonstrate high STIR signal, decreased T1 signal, are isointense with that on the axial T2-weighted images, and suppress on fat-saturated T2-weighted images. The nodules are primarily seen within the buttocks, are seen to wrap around the posterior bilateral hip regions. A few scattered nodules are seen extending into the proximal thighs and are seen as far as the inferior extent of the imaging volume. The coronal STIR images suggest that of the nodules do extending to the anterior thighs but not significantly into the anterior lower pelvic wall. The nodules posteriorly extend as far cephalad as the L5 level. There is a slight degree of edema of the anterior superficial gluteus nyla musculature bilaterally. This is symmetric. No discrete collections to suggest abscess. The largest individual nodules measure approximately 15 mm diameter. The included pelvic visceral structures are unremarkable. Impression: Extensive nodularity of the subcutaneous fat of the bilateral buttock region,, consistent with known of silicone injections. The nodules are mostly seen in the bilateral buttock region and posterior hips, although a few to extend into the anterior thigh and a very few extends distally in the thigh beyond the imaging volume High STIR signal and T2 signal within the bilateral gluteal musculature. This is nonspecific but indicates edema, possibly secondary to myositis or reactive edema secondary to the adjacent silicone deposits. No discrete fluid collections to suggest abscess
[2016-06-07] MEDS ORDERED: LR 1000ml 1,000 ML IV SCH (15:30)
--- NOTE | 2016-06-07 15:31 | Operative Note - PDOC ---
Operative Note Operative Note Date of Operation/Procedure: Jun 07, 2016 Pre-op Diagnosis: b/l buttock and back soft tissue necrosis and cellulitis Procedure: staged partial debridement of b/l buttocks and back necrotic soft tissue, flap delay and vac placement Post-op Diagnosis: same as above Post-op Diagnosis: same as pre-op Surgeon: myke Gas Refrigerator Servicer: socorro Anesthesiologist: aubree Anesthesia: general Specimen: yes Complications: none Condition: stable Estimated Blood Loss: volume - 300 Drains: wound vac Implant(s) used?: No Josephine Davenport M.D. Jun 07, 2016 15:31
[2016-06-07] MEDS ORDERED: Tubing IV Secondary IV ONE (16:02)
[2016-06-07] MEDS ORDERED: PCA HYDROmorphone 1mg/ml 30 ML IV PRN (16:15)
[2016-06-07] MEDS: Hydromorphone 0.5mg/0.5ml inj IVP PRN ×2 (16:22→16:41)
[2016-06-07] MEDS ORDERED: Rate Change PCA 1 Each MISC PRN (17:45)
--- NOTE | 2016-06-07 17:51 | General Progress Note ---
Assessment/Plan Problem List: (1) Intractable back pain Assessment & Plan: Pt noted to have multiple subcutaneous nodules on MRI in the pelvis area with reactive subcu edema, given this finding plastic surgery consulted, pt taken to OR for I+D and debridement of the area given her symptoms Extensive lab workup to r/o DAFNE syndrome given classical symptoms and presentation f/u blood cultures Start IV cipro Total of 31 mins of additional time was spent with this patient, above and beyond the normal face to face visit time ICD Codes: M54.9 - Dorsalgia, unspecified SNOMED: [id number] Subjective Date patient seen: Jun 07, 2016 Time patient seen: 17:48 ROS Limited/Unobtainable: No Constitutional: Denies: chills, diaphoresis, fever, malaise, no symptoms, other , weakness HEENT: Denies: blurred vision, double vision, ear discharge, ear pain, eye pain , mouth pain, mouth swelling, no symptoms, nose congestion, nose pain, other, tearing, throat pain, throat swelling Cardiovascular: Denies: chest pain, edema, irregular heart rate, lightheadedness, no symptoms, other, palpitations, syncope Respiratory: Denies: SOB at rest, SOB with excertion, cough, no symptoms, orthopnea, other, shortness of breath, sputum, stridor, wheezing Gastrointestinal/Abdominal: Denies: abdomen distended, abdominal pain, black stools, blood in stool, constipated, diarrhea, difficulty swallowing, nausea, no symptoms, other, poor appetite, poor fluid intake, rectal bleeding, tarry stools, vomiting Genitourinary: Denies: burning, discharge, flank pain, frequency, hematuria, incontinence, no symptoms, other, pain, urgency Neurologic/Psychiatric: Denies: anxiety, depressed, emotional problems, headache, no symptoms, numbness, other, paresthesia, pre-existing deficit, seizure, tingling, tremors, weakness Endocrine: Denies: excessive sweating, flushing, increased hunger, increased thirst, increased urine, intolerance to cold, intolerance to heat, no symptoms, other, unexplained weight gain, unexplained weight loss Hematologic/Lymphatic: Denies: anemia, easy bleeding, easy bruising, no symptoms, other Allergies: Coded Allergies: PENICILLINS (Verified Allergy, Unknown, 06/05/16) Subjective No acute overnight vents, no new complaints. No chest pain, still with persistent pain in the buttocks and lower back region Objective Last 24 Hour Vital Signs Date Time Temp Pulse Resp B/P Pulse Ox O2 Delivery O2 Flow Rate FiO2 06/07/16 17:11 98.0 06/07/16 16:52 98.0 06/07/16 16:50 98.0 90 14 117/88 100 Nasal Cannula 3.0 06/07/16 16:35 97 13 126/90 100 Nasal Cannula 3.0 06/07/16 16:20 97 14 128/86 100 Nasal Cannula 3.0 06/07/16 16:05 94 12 130/94 100 Nasal Cannula 3.0 06/07/16 15:50 91 13 128/88 100 Nasal Cannula 3.0 06/07/16 15:35 95 14 135/90 100 Nasal Cannula 3.0 06/07/16 15:20 96 13 127/88 100 Simple Mask 6.0 06/07/16 15:16 115 19 131/91 100 Simple Mask 6.0 06/07/16 15:16 104 14 99 06/07/16 15:11 97.5 104 17 100/66 99 Simple Mask 6.0 06/07/16 12:00 97.7 95 18 139/77 99 Room Air 06/07/16 08:05 98.1 79 18 128/63 97 Room Air 06/07/16 04:00 97.7 72 18 108/68 98 Room Air 06/07/16 00:00 97.9 87 18 105/58 95 Room Air 06/06/16 18:22 97.9 92 17 110/68 100 Room Air 06/06/16 17:52 97.9 92 17 110/68 100 Room Air Intake and Output 06/06/16 06/07/16 19:00 07:00 Intake Total 0 ml 1250 ml Balance 0 ml 1250 ml Intake Oral 0 ml 150 ml IV Total 1100 ml # Voids 2 Laboratory Tests 06/07/16 05:40: White Blood Count [Pending], Lymphocytes [Pending], Erythrocyte Sedimentation Rate 10, Prothrombin Time 10.5, Prothromb Time International Ratio 1.0, Activated Partial Thromboplast Time 27, Lupus Anticoagulant [Pending], Lupus Anticoagulant PTT Baseline [Pending], Lupus Anticoag DRVVT Screen Ratio [Pending ], DRVVT Confirmation Interpretation [Pending], Hexagonal Phase Comment [Pending ], Sodium Level 141, Potassium Level 3.9, Chloride Level 103, Carbon Dioxide Level 23, Anion Gap 15, Blood Urea Nitrogen 10, Creatinine 0.7, Estimat Glomerular Filtration Rate > 60, Glucose Level 87, Calcium Level 9.0, C- Reactive Protein, Quantitative < 0.3, Total Protein (PEP) [Pending], Albumin ( PEP) [Pending], Globulin (PEP) [Pending], Albumin/Globulin Ratio [Pending], Gshmb-0-Nxztwnvct [Pending], Jqvmw-1-Zgwnvtesj [Pending], Beta Globulins [ Pending], Beta Gamma Globulin [Pending], PEP Abnormal Protein Bands [Pending], Protein Electrophoresis Interpret [Pending], Angiotensin Converting Enzyme [ Pending], Immunoglobulin G [Pending], Immunoglobulin A [Pending], Immunoglobulin M [Pending], Immunofixation Screen [Pending], Circulating Immune Complexes [Pending], Rheumatoid Factor Screen [Pending], Anti-Nuclear Antibody Screen [Pending], SS-A/Ro Antibody [Pending], SS-B/La Antibody [Pending], Total Complement (CH50) [Pending], Percent CD3 Cells [Pending], Absolute CD3 Count [ Pending], Percent CD4 Cells [Pending], Absolute CD4 Count [Pending], T- Lymphocyte CD4/CD8 Ratio [Pending], Percent CD8 Cells [Pending], Absolute CD8 Count [Pending] 06/07/16 11:00: Urine HCG, Qualitative Negative Height (Feet): 5 Height (Inches): 0.00 Weight (Pounds): 146 General Appearance: WD/WN, no apparent distress, alert EENT: PERRL/EOMI, normal ENT inspection Neck: non-tender, normal alignment, supple Cardiovascular: normal peripheral pulses, normal rate, regular rhythm, no JVD Respiratory/Chest: chest wall non-tender, lungs clear, normal breath sounds, no respiratory distress Abdomen: normal bowel sounds, non tender, soft Extremities: normal range of motion, non-tender, normal inspection Neurologic: alert, oriented x 3, responsive, normal mood/affect Skin: normal pigmentation, warm/dry, no diaphoresis SADIE REYES Jun 07, 2016 17:51
[2016-06-07] MEDS: PCA HYDROmorphone 1mg/ml 30 ML IV PRN (19:03)
[2016-06-07] MEDS: PCA shift volume MISC SCH (23:09)
[2016-06-08] VITALS: BP 120/71
[2016-06-08 04:00] VITALS: BP 107/62
[2016-06-08] MEDS: PCA shift volume MISC SCH ×3 (07:06→23:00)
[2016-06-08 08:31] VITALS: BP 108/69
[2016-06-08] MEDS: Docusate 100mg cap ORAL SCH ×3 (08:49→21:00)
--- NOTE | 2016-06-08 09:08 | Consultation ---
History of Present Illness General Date patient seen: Jun 08, 2016 Chief Complaint: General Complaint Present Illness Allergies: Coded Allergies: PENICILLINS (Verified Allergy, Unknown, 06/05/16) Medication History Scheduled No Known Medications* (NKM - No Known Medications*), 0 ., (Reported) Patient History Healthcare decision maker Resuscitation status Full Code Advanced Directive on File Physical Exam Last 24 Hour Vital Signs Date Time Temp Pulse Resp B/P Pulse Ox O2 Delivery O2 Flow Rate FiO2 06/08/16 08:45 16 06/08/16 08:31 97.9 96 16 108/69 99 Room Air 06/08/16 04:45 16 06/08/16 04:00 98.2 84 20 107/62 98 Room Air 06/08/16 00:45 16 06/08/16 00:00 97.7 106 20 120/71 98 Room Air 06/07/16 20:45 16 06/07/16 20:15 16 06/07/16 20:00 16 06/07/16 20:00 97.9 108 20 116/71 99 Room Air 06/07/16 19:43 16 06/07/16 19:33 98.0 06/07/16 19:30 16 06/07/16 19:15 16 06/07/16 19:00 16 06/07/16 17:11 98.0 06/07/16 16:52 98.0 06/07/16 16:50 98.0 90 14 117/88 100 Nasal Cannula 3.0 06/07/16 16:35 97 13 126/90 100 Nasal Cannula 3.0 06/07/16 16:20 97 14 128/86 100 Nasal Cannula 3.0 06/07/16 16:05 94 12 130/94 100 Nasal Cannula 3.0 06/07/16 15:50 91 13 128/88 100 Nasal Cannula 3.0 06/07/16 15:35 95 14 135/90 100 Nasal Cannula 3.0 06/07/16 15:20 96 13 127/88 100 Simple Mask 6.0 06/07/16 15:16 115 19 131/91 100 Simple Mask 6.0 06/07/16 15:16 104 14 99 06/07/16 15:11 97.5 104 17 100/66 99 Simple Mask 6.0 06/07/16 12:00 97.7 95 18 139/77 99 Room Air Intake and Output 06/07/16 06/08/16 19:00 07:00 Intake Total 2100 ml 1100 ml Output Total 375 ml 2240 ml Balance 1725 ml -1140 ml IV Total 2100 ml 1100 ml Output Urine Total 300 ml 1290 ml Estimated Blood Loss 25 ml Other 50 ml 950 ml # Voids 3 Laboratory Tests Test 06/07/16 11:00 Urine HCG, Qualitative Negative Height (Feet): 5 Height (Inches): 0.00 Weight (Pounds): 146 Medications Current Medications Medications (Trade) Dose Ordered Sig/Josué Route PRN Reason Start Time Stop Time Status Last Admin Dose Admin Acetaminophen (Tylenol) 650 mg Q4H PRN ORAL Mild Pain (Pain Scale 1-3) 06/06/16 17:45 07/06/16 17:44 Acetaminophen (Tylenol) 650 mg Q4H PRN ORAL T>100.5 06/06/16 17:45 07/06/16 17:44 Al Hydroxide/Mg Hydroxide (Mylanta II) 30 ml Q6H PRN ORAL dyspepsia 06/06/16 17:45 07/06/16 17:44 Bisacodyl (Dulcolax) 10 mg HSPRN PRN RECTAL Constipation 06/06/16 17:45 07/06/16 17:44 Ciprofloxacin 200 ml @ 200 mls/hr Q12HR IV 06/06/16 21:00 06/13/16 20:59 06/08/16 08:49 Dextrose STAT PRN IV Hypoglycemia 06/06/16 17:45 07/06/16 17:44 Diphenhydramine HCl (Benadryl) 25 mg Q6H PRN ORAL Itching/Pruritis 06/06/16 17:45 07/06/16 17:44 Docusate Sodium (Colace) 100 mg EVERY 12 HOURS ORAL 06/06/16 21:00 07/06/16 20:59 06/06/16 21:00 Hydromorphone HCl (CHILD CARE SUPERVISOR Dilaudid) 30 ml @ 0 mls/hr Q24H PRN IV For Pain 06/07/16 17:45 06/09/16 17:44 06/07/16 19:03 Lorazepam (Ativan) 1 mg Q4H PRN ORAL For Anxiety 06/06/16 17:45 06/13/16 17:44 Magnesium Hydroxide (Mom) 30 ml HSPRN PRN ORAL Constipation 06/06/16 17:45 07/06/16 17:44 Miscellaneous Medication (CHILD CARE SUPERVISOR Rate Change) 1 ea DAILYPRN PRN MISC rate change 06/07/16 17:45 06/09/16 17:44 Miscellaneous Medication (CHILD CARE SUPERVISOR shift volume) 1 ea Q8HR@07,15,23 MISC 06/07/16 23:00 06/09/16 22:59 06/08/16 07:06 Ondansetron HCl (Zofran) 4 mg Q6H PRN IVP Nausea & Vomiting 06/06/16 17:45 07/06/16 17:44 Polyethylene Glycol (Miralax) 17 gm HSPRN PRN ORAL Constipation 06/06/16 17:45 07/06/16 17:44 Sodium Chloride (Sodium Chloride 1000ml bag) 1,000 ml @ 100 mls/hr Q10H IV 06/06/16 22:00 07/06/16 21:59 06/08/16 04:47 Temazepam 15 mg 15 mg HSPRN PRN ORAL Insomnia 06/07/16 01:15 06/14/16 01:14 Assessment/Plan Assessment/Plan (1) B/L buttock and back soft tissue necrosis, cellulitis (2) S/p staged debridement of b/l buttock and back necrotic soft tissue, flap delay and vac placement (3) Intractable pain Seen dictated SONIA IRAHETA Jun 08, 2016 09:08
--- NOTE | 2016-06-08 09:09 | Diagnostic Imaging Report ---
Indication: Status post silicon injection into bilateral buttocks, preoperative imaging for assessment of extent Technique: Sagittal T1 and T2 fast spin echo, sagittal STIR, axial T1 and T2 fast spin-echo images of the lumbar spine Comparison: None Findings: High STIR signal and low T1 signal nodules are seen distributed throughout the subcutaneous fat of the bilateral upper buttock region. On the STIR signal images, also seen on the T1-weighted images, edema is seen in the deep subcutaneous fat of the midline. No definite nodularity is seen within the edema, although isointense nodules within it are impossible to completely exclude. Nonetheless, the most cephalad extent of the subcutaneous deposits appears to be to about the T4 level, ending where the buttocks emerge into the lower lumbar region. The lumbar spine demonstrates normal bony alignment. Vertebral body heights and disc spaces are preserved. No significant disc bulge or protrusion, spinal stenosis, or neural foraminal stenosis. Normal vertebral body marrow signal. There is desiccation of the anterior discs The included pelvic viscera are unremarkable. Impression: Extensive nodularity of the subcutaneous fat of the buttocks, extending to about the L4 level cephalad, as described, consistent with known history of silicone injections. Unremarkable lumbar spine
--- NOTE | 2016-06-08 10:30 | 48 Hour Post Anesthesia Eval ---
Post Anesthesia Evaluation Procedure: Staged debriedment of bilateral buttock and low back soft tissue Date of Evaluation: Jun 08, 2016 Time of Evaluation: 10:30 Blood Pressure Systolic: 108 0: 69 Pulse Rate: 96 Respiratory Rate: 16 Temperature (Fahrenheit): 97.9 O2 Sat by Pulse Oximetry: 99 Airway: patent Nausea: No Vomiting: No Pain Intensity: 2 If pain is > 6 Comment: Patient doing well with [employer]GE[employer] Hydration Status: adequate Cardiopulmonary Status: Stable Mental Status/LOC: patient returned to baseline Follow-up Care/Observations: As per surgery Post-Anesthesia Complications: No anesthetic complication Follow-up care needed: N/A AROLDO FULLER M.D. Jun 08, 2016 10:30
[2016-06-08 11:56] VITALS: BP 122/64
[2016-06-08 12:41] LABS: BASOPHILS % (AUTO) 0.8 % (0.0-2.0); EOSINOPHILS % (AUTO) 0.1 % (0.0-3.0); LYMPHOCYTES % (AUTO) 32.8 % (20.0-45.0); MEAN CORPUSCULAR HEMOGLOBIN 30.5 PG (27.0-31.0); MEAN CORPUSCULAR HGB CONC 32.5 G/DL (32.0-36.0); MEAN CORPUSCULAR VOLUME 94 FL (80-99); MEAN PLATELET VOLUME 6.3 FL (6.5-10.1); MONOCYTES % (AUTO) 6.3 % (1.0-10.0); PLATELET COUNT 319 K/UL (150-450); RED BLOOD COUNT 3.39 M/UL (4.20-5.40); RED CELL DISTRIBUTION WIDTH 11.1 % (11.6-14.8); WHITE BLOOD COUNT 16.8 K/UL (4.8-10.8)
[2016-06-08 13:09] LABS: ANION GAP 17 (5-15); CALCIUM 8.6 mg/dL (8.6-10.2); CARBON DIOXIDE 21 mEQ/L (20-30); CHLORIDE 102 mEQ/L (98-107); CREATININE 0.8 mg/dL (0.5-0.9); GLOMERULAR FILTRATION RATE > 60 mL/min (>60); HEMOLYSIS 9; SODIUM 140 mEQ/L (135-145)
--- NOTE | 2016-06-08 15:07 | General Progress Note ---
Progress Note Progress Note Pt doing very well post-op; reports resolution of pre-op symptoms AF/VSS H/H appropriate PE: VAC in place and functioning VAC output appropriate flaps viable (-) signs infection (-) collections A/P 1. f/c wang tmw 2. OOB w/ assistance 3. cont abx 4.daily cbc/bmp 5. cont vac and dvt ppx 6. to OR Thur for stage 2/closure 7. frequent position changes 8. type and cross one unit PRBC for possible blood xfusion during second surgery 9. cont SCIENTIFIC AIDE Josephine Davenport M.D. Jun 08, 2016 15:07
[2016-06-08 15:55] VITALS: BP 98/55
--- NOTE | 2016-06-08 17:43 | General Progress Note ---
Assessment/Plan Problem List: (1) Intractable back pain Assessment & Plan: s/p I+D of buttocks POD#1 Pain control Supp care f/u Extensive lab workup to r/o DAFNE syndrome given classical symptoms and presentation f/u blood cultures Cont IV cipro Total of 31 mins of additional time was spent with this patient, above and beyond the normal face to face visit time ICD Codes: M54.9 - Dorsalgia, unspecified SNOMED: [id number] Subjective Date patient seen: Jun 08, 2016 Time patient seen: 17:41 ROS Limited/Unobtainable: No Constitutional: Reports: no symptoms HEENT: Reports: no symptoms Cardiovascular: Reports: no symptoms Respiratory: Reports: no symptoms Gastrointestinal/Abdominal: Reports: no symptoms Genitourinary: Reports: no symptoms Neurologic/Psychiatric: Reports: no symptoms Endocrine: Reports: no symptoms Hematologic/Lymphatic: Reports: no symptoms Allergies: Coded Allergies: PENICILLINS (Verified Allergy, Unknown, 06/05/16) Subjective s/p I+D of buttocks, POD#1, no periop or postop complications. No chest pain or dyspnea, postop pain well controlled. Objective Last 24 Hour Vital Signs Date Time Temp Pulse Resp B/P Pulse Ox O2 Delivery O2 Flow Rate FiO2 06/08/16 16:45 16 06/08/16 15:55 98.2 106 20 98/55 99 Nasal Cannula 06/08/16 12:45 16 06/08/16 11:56 97.5 84 16 122/64 98 Room Air 06/08/16 10:30 96 16 99 06/08/16 08:45 16 06/08/16 08:31 97.9 96 16 108/69 99 Room Air 06/08/16 04:45 16 06/08/16 04:00 98.2 84 20 107/62 98 Room Air 06/08/16 00:45 16 06/08/16 00:00 97.7 106 20 120/71 98 Room Air 06/07/16 20:45 16 06/07/16 20:15 16 06/07/16 20:00 16 06/07/16 20:00 97.9 108 20 116/71 99 Room Air 06/07/16 19:43 16 06/07/16 19:33 98.0 06/07/16 19:30 16 06/07/16 19:15 16 06/07/16 19:00 16 Intake and Output 06/07/16 06/08/16 19:00 07:00 Intake Total 2100 ml 1200 ml Output Total 375 ml 2240 ml Balance 1725 ml -1040 ml IV Total 2100 ml 1200 ml Output Urine Total 300 ml 1290 ml Estimated Blood Loss 25 ml Other 50 ml 950 ml # Voids 3 Laboratory Tests 06/08/16 12:15: White Blood Count 16.8H, Red Blood Count 3.39L, Hemoglobin 10.3L, Hematocrit 31.8L, Mean Corpuscular Volume 94, Mean Corpuscular Hemoglobin 30.5, Mean Corpuscular Hemoglobin Concent 32.5, Red Cell Distribution Width 11.1L, Platelet Count 319, Mean Platelet Volume 6.3L, Neutrophils (%) (Auto) 60.0, Lymphocytes (%) (Auto) 32.8, Monocytes (%) (Auto) 6.3, Eosinophils (%) (Auto) 0.1, Basophils (%) (Auto) 0.8, Sodium Level 140, Potassium Level 4.0, Chloride Level 102, Carbon Dioxide Level 21, Anion Gap 17H, Blood Urea Nitrogen 10, Creatinine 0.8, Estimat Glomerular Filtration Rate > 60, Glucose Level 97, Calcium Level 8.6 Height (Feet): 5 Height (Inches): 0.00 Weight (Pounds): 146 General Appearance: WD/WN, no apparent distress, alert EENT: PERRL/EOMI Neck: non-tender, normal alignment, supple Cardiovascular: normal peripheral pulses, normal rate, regular rhythm, no gallop/murmur Respiratory/Chest: chest wall non-tender, lungs clear, normal breath sounds, no respiratory distress Abdomen: soft, no organomegaly, no mass Extremities: normal range of motion, non-tender, normal inspection Edema: no edema noted Arm (L), no edema noted Arm (R), no edema noted Leg (L), no edema noted Leg (R), no edema noted Pedal (L), no edema noted Pedal (R), no edema noted Generalized Neurologic: alert, oriented x 3, responsive, normal mood/affect Skin: normal pigmentation, warm/dry, no diaphoresis SADIE REYES Jun 08, 2016 17:43
[2016-06-08] MEDS: PCA HYDROmorphone 1mg/ml 30 ML IV PRN (19:04)
[2016-06-08 20:00] VITALS: BP 114/63
--- NOTE | 2016-06-08 23:48 | Consultation ---
DATE OF CONSULTATION: 06/08/2016 PAIN MANAGEMENT CONSULTATION CONSULTING PHYSICIAN: Sreedhar Frank M.D. PHYSICIAN H[facility] ATTENDANT: Shira Pagan REFERRING PHYSICIAN: Gwen Newton M.D. CHIEF COMPLAINT: Buttock and back pain. HISTORY OF PRESENT ILLNESS: This is a 30-year-old female, who is being seen on the Med/Surg floor of [facility] for initial comprehensive pain management consultation. The patient reported that she has been having buttock and back pain due to necrosis and cellulitis caused by injections at that site and is status post debridement and flaps delay with wound VAC, and started on a ROOM SERVICE RUNNER Dilaudid 0.2 mg at lockout interval every 6 min, At this time, the patient is complaining of pain. I educated the patient on how to use the medication. I discussed with the patient on adding a breakthrough medication. The patient understands and will use the ROOM SERVICE RUNNER if needed. PAST MEDICAL HISTORY: Denies. PAST SURGICAL HISTORY: Denies. MEDICATIONS: The patient denies taking any medication as an outpatient. ALLERGIES: Penicillin. SOCIAL HISTORY: Denies smoking tobacco, drinking alcohol, or IV drug abuse. REVIEW OF SYSTEMS: Denies rash, fever, chills, sweating, dizziness, drowsiness, blurred vision, sore throat, or change in her weight. No shortness of breath or chest pain. No nausea, vomiting, diarrhea, or blood in the stool or urine. No bowel or bladder incontinence. No dysuria. Complaining of back and buttock pain. PHYSICAL EXAMINATION: GENERAL: Alert, awake, and oriented x3. VITAL SIGNS: Blood pressure 108/69, heart rate is 96, oxygen saturation 99%, respirations 16, and temperature is 97.9 degrees Fahrenheit. HEENT: PERRLA. NECK: Range of motion is full in all directions. No tenderness to the paracervical muscles. No adenopathy. LUNGS: Clear. HEART: Regular. ABDOMEN: Benign. BACK: Range of motion is decreased in flexion and extension with tenderness to paraspinal muscles with wound VAC seen and placed with tenderness to palpation on the buttock area. EXTREMITIES: Upper extremity range of motion is full in all directions. Motor is intact. No cyanosis. No clubbing. No edema. Sensory is intact. Reflexes are not obtainable. No adenopathy. Lower extremity range of motion is decreased due to the patient's pain and condition. Motor is intact. No cyanosis. No clubbing. No edema. Sensory is intact. Reflexes are not obtainable. No adenopathy. ASSESSMENT AND PLAN: This is a 30-year-old female with bilateral buttock and back soft tissue necrosis and cellulitis, status post stage debridement of bilateral buttock and back necrotic soft tissue, flap delay and back placement, and intractable pain. The patient will continue on the ROOM SERVICE RUNNER Dilaudid and will be started on Dilaudid 1 mg IV every 4 hours as needed for severe pain, [facility] 10/325 one tablet every four hours as needed for moderate pain, and Neurontin 100 mg tablet three times a day. The patient was discussed with Dr. Frank and Dr. Frank concurred. We will follow the patient. Thank you very much for the courtesy of this consultation. Sreedhar Frank M.D. BREA Pagan DR: TIANNA JOB#: [id number] CC: SEAN
[2016-06-09] VITALS: BP 94/57
[2016-06-09] MEDS: HYDROmorphone 1mg/ml Carpuject IVP PRN ×2 (01:00→14:49)
[2016-06-09] MEDS: PCA shift volume MISC SCH ×3 (07:00→23:27)
[2016-06-09 07:17] LABS: BASOPHILS % (AUTO) 0.6 % (0.0-2.0); EOSINOPHILS % (AUTO) 0.5 % (0.0-3.0); LYMPHOCYTES % (AUTO) 41.7 % (20.0-45.0); MEAN CORPUSCULAR HEMOGLOBIN 32.9 PG (27.0-31.0); MEAN CORPUSCULAR HGB CONC 34.8 G/DL (32.0-36.0); MEAN CORPUSCULAR VOLUME 95 FL (80-99); MEAN PLATELET VOLUME 6.3 FL (6.5-10.1); MONOCYTES % (AUTO) 5.4 % (1.0-10.0); NEUTROPHILS % (AUTO) 51.8 % (45.0-75.0); PLATELET COUNT 243 K/UL (150-450); RED BLOOD COUNT 2.67 M/UL (4.20-5.40); RED CELL DISTRIBUTION WIDTH 11.1 % (11.6-14.8); WHITE BLOOD COUNT 16.6 K/UL (4.8-10.8)
[2016-06-09 07:19] LABS: ANION GAP 10 (5-15); CALCIUM 8.6 mg/dL (8.6-10.2); CARBON DIOXIDE 24 mEQ/L (20-30); CHLORIDE 108 mEQ/L (98-107); CREATININE 0.6 mg/dL (0.5-0.9); GLOMERULAR FILTRATION RATE > 60 mL/min (>60); HEMOLYSIS 2; POTASSIUM 4.6 mEQ/L (3.4-4.9); SODIUM 142 mEQ/L (135-145)
[2016-06-09 08:00] VITALS: BP 129/63
--- NOTE | 2016-06-09 08:06 | General Progress Note ---
Assessment/Plan Assessment/Plan (1) B/L buttock and back soft tissue necrosis, cellulitis (2) S/p staged debridement of b/l buttock and back necrotic soft tissue, flap delay and vac placement (3) Intractable pain The patient will continue on the MECHANICAL ENGINEERING MANAGER Dilaudid, Dilaudid IV SubQ, [place] and Neurontin The patient was discussed with Dr. Frank and Dr. Frank concurred. Subjective Date patient seen: Jun 09, 2016 Time patient seen: 07:15 - am Allergies: Coded Allergies: PENICILLINS (Verified Allergy, Unknown, 06/05/16) Subjective REVIEW OF SYSTEMS: Denies rash, fever, chills, sweating, dizziness, drowsiness, blurred vision, sore throat, or change in her weight. No shortness of breath or chest pain. No nausea, vomiting, diarrhea, or blood in the stool or urine. No bowel or bladder incontinence. No dysuria. Complaining of back and buttock pain. SUBJECTIVE: Pt is in bed pain has been tolerated well and is a 6/10. Objective Last 24 Hour Vital Signs Date Time Temp Pulse Resp B/P Pulse Ox O2 Delivery O2 Flow Rate FiO2 06/09/16 08:00 98.2 94 21 129/63 97 Nasal Cannula 2.0 06/09/16 04:45 16 06/09/16 00:45 16 06/09/16 00:00 97.7 84 18 94/57 99 Room Air 06/08/16 20:45 16 06/08/16 20:00 98.6 93 20 114/63 99 Room Air 06/08/16 19:34 98.2 06/08/16 19:04 16 06/08/16 19:03 16 06/08/16 16:45 16 06/08/16 15:55 98.2 106 20 98/55 99 Nasal Cannula 06/08/16 12:45 16 06/08/16 11:56 97.5 84 16 122/64 98 Room Air 06/08/16 10:30 96 16 99 06/08/16 08:45 16 06/08/16 08:31 97.9 96 16 108/69 99 Room Air Intake and Output 06/08/16 06/09/16 19:00 07:00 Intake Total 1500 ml 840 ml Output Total 850 ml 2055 ml Balance 650 ml -1215 ml Intake Oral 1000 ml 240 ml IV Total 500 ml 600 ml Output Urine Total 500 ml 1500 ml Drainage Total 350 ml 555 ml Laboratory Tests 06/08/16 12:15: White Blood Count 16.8H, Red Blood Count 3.39L, Hemoglobin 10.3L, Hematocrit 31.8L, Mean Corpuscular Volume 94, Mean Corpuscular Hemoglobin 30.5, Mean Corpuscular Hemoglobin Concent 32.5, Red Cell Distribution Width 11.1L, Platelet Count 319, Mean Platelet Volume 6.3L, Neutrophils (%) (Auto) 60.0, Lymphocytes (%) (Auto) 32.8, Monocytes (%) (Auto) 6.3, Eosinophils (%) (Auto) 0.1, Basophils (%) (Auto) 0.8, Sodium Level 140, Potassium Level 4.0, Chloride Level 102, Carbon Dioxide Level 21, Anion Gap 17H, Blood Urea Nitrogen 10, Creatinine 0.8, Estimat Glomerular Filtration Rate > 60, Glucose Level 97, Calcium Level 8.6 06/09/16 05:45: White Blood Count 16.6H, Red Blood Count 2.67L, Hemoglobin 8.8L, Hematocrit 25.2L, Mean Corpuscular Volume 95, Mean Corpuscular Hemoglobin 32.9H, Mean Corpuscular Hemoglobin Concent 34.8, Red Cell Distribution Width 11.1L, Platelet Count 243, Mean Platelet Volume 6.3L, Neutrophils (%) (Auto) 51.8, Lymphocytes (%) (Auto) 41.7, Monocytes (%) (Auto) 5.4, Eosinophils (%) (Auto) 0.5, Basophils (%) (Auto) 0.6, Sodium Level 142, Potassium Level 4.6, Chloride Level 108H, Carbon Dioxide Level 24, Anion Gap 10, Blood Urea Nitrogen 9, Creatinine 0.6, Estimat Glomerular Filtration Rate > 60, Glucose Level 88, Calcium Level 8.6 Height (Feet): 5 Height (Inches): 0.00 Weight (Pounds): 146 Objective PHYSICAL EXAMINATION: GENERAL: Alert, awake, and oriented x3. HEENT: PERRLA. NECK: Range of motion is full in all directions. No tenderness to the paracervical muscles. No adenopathy. LUNGS: Clear. HEART: Regular. ABDOMEN: Benign. BACK: Range of motion is decreased in flexion and extension with tenderness to paraspinal muscles with wound VAC seen and placed with tenderness to palpation on the buttock area. EXTREMITIES: No cyanosis. No clubbing. No edema. NEURO: No changes. SONIA IRAHETA Jun 09, 2016 08:06
[2016-06-09] MEDS ORDERED: Rate Change PCA 1 Each MISC PRN (08:15)
[2016-06-09 09:35] LABS: A/G RATIO 1.3 (0.7-1.7); ABNORMAL PROTEIN BAND 1 Not Observed g/dL (Not Observed); ALBUMIN 3.3 g/dL (2.9-4.4); ALPHA-1 GLOBULIN 0.2 g/dL (0.0-0.4); ALPHA-2 GLOBULIN 0.5 g/dL (0.4-1.0); BETA GLOBULIN 0.8 g/dL (0.7-1.3); CD3 ABSOLUTE 2058 /uL (622-2402); CD4 ABSOLUTE 1389 /uL (359-1519); CD8 ABSOLUTE 659 /uL (109-897); GLOBULIN, TOTAL 2.6 g/dL (2.2-3.9); LYMPHOCYTES ABSOLUTE 3.2 x10E3/uL (0.7-3.1); LYMPHS 41 % (.); RHEUMATOID FACTOR SCREEN <10.0 IU/mL (0.0-13.9); SS-B/La SJOGRENS ANTIBODY <0.2 AI (0.0-0.9); SSA/Ro SJOGRENS ANTIBODY 0.9 AI (0.0-0.9); TOTAL PROTEIN 5.9 g/dL (6.0-8.5); WBC 7.7 x10E3/uL (3.4-10.8)
[2016-06-09 09:36] LABS: ANGIOTENSIN CONVERTING ENZYME 50 U/L (14-82); IMMUNOGLOBULIN A 157 mg/dL (87-352); IMMUNOGLOBULIN G 1079 mg/dL (700-1600); IMMUNOGLOBULIN M 90 mg/dL (26-217)
[2016-06-09] MEDS: Docusate 100mg cap ORAL SCH ×2 (09:47→20:19)
[2016-06-09] MEDS: Norco 10mg/325mg tab ORAL PRN (10:20)
--- NOTE | 2016-06-09 10:45 | General Progress Note ---
Progress Note Progress Note Pt c/o back pain (+) OOB AF/VSS H/H down to 12/24 PE: some necrosis of inferior buttock flap (-) collections (-) signs infection VACs functioning A/P 1. repeat am CBC; type and cross 2 U prbc 2. OOB, DVT ppx; Abx 3. NPO after MN; IVF after Mn 4. to OR Fri for staged debridement of b/l buttocks necrotic soft tissue and flap closure 5. freq position changes; stay off supine Josephine Davenport M.D. Jun 09, 2016 10:45
[2016-06-09 11:47] VITALS: BP 102/65
--- NOTE | 2016-06-09 13:08 | Anethesia Preoperative Eval ---
Anesthesia Pre-op PMH/ROS General Date of Evaluation: Jun 09, 2016 Anesthesiologist: Steven ASA Score: ASA 1 Mallampati Score Class I : Soft palate, uvula, fauces, pillars visible Class II: Soft palate, uvula, fauces visible Class III: Soft palate, base of uvula visible Class IV: Only hard plate visible Mallampati Classification: Class II Surgeon: Issac Diagnosis: Necrotic soft tissue abscess low back/buttocks Surgical Procedure: Stage 2 debriedment and closure of soft tissue abscess low back/buttocks Anesthesia History: none Family History: no anesthesia problems Allergies: Coded Allergies: PENICILLINS (Verified Allergy, Unknown, 06/05/16) Medications: see eMAR Past Medical History Cardiovascular: Denies: CAD, HTN, [place], arrhythmia, other, valve dz Pulmonary: Denies: COPD, [place], asthma, other Gastrointestinal/Genitourinary: Denies: CRI, ESRD, GERD, other Neurologic/Psychiatric: Denies: CVA, TIA, dementia, depression/anxiety, other Endocrine: Denies: DM, hypothyroidism, other, steroids HEENT: Denies: [place] (L), [place] (R), cataract (L), cataract (R), glaucoma, other Hematology/Immune: Denies: DVT, anemia, bleeding disorder, other Musculoskeletal/Integumentary: Denies: DDD, DJD, OA, RA, edema, other PSxH Narrative: I&D of soft tissue abscess low back/buttocks Anesthesia Pre-op Phys. Exam Physician Exam Last Vital Signs Date Time Temp Pulse Resp B/P Pulse Ox O2 Delivery O2 Flow Rate FiO2 06/09/16 11:47 99.1 107 21 102/65 97 Room Air 06/09/16 08:00 2.0 Constitutional: NAD Cardiovascular: RRR Respiratory: CTA Airway Exam Mallampati Score: Class I MO: full ROM: full Teeth: intact Anesthesia Pre-op A/P Labs Hematology Test 06/09/16 05:45 White Blood Count 16.6 K/UL (4.8-10.8) H Red Blood Count 2.67 M/UL (4.20-5.40) L Hemoglobin 8.8 G/DL (12.0-16.0) L Hematocrit 25.2 % (37.0-47.0) L Mean Corpuscular Volume 95 FL (80-99) Mean Corpuscular Hemoglobin 32.9 PG (27.0-31.0) H Mean Corpuscular Hemoglobin Concent 34.8 G/DL (32.0-36.0) Red Cell Distribution Width 11.1 % (11.6-14.8) L Platelet Count 243 K/UL (150-450) Mean Platelet Volume 6.3 FL (6.5-10.1) L Neutrophils (%) (Auto) 51.8 % (45.0-75.0) Lymphocytes (%) (Auto) 41.7 % (20.0-45.0) Monocytes (%) (Auto) 5.4 % (1.0-10.0) Eosinophils (%) (Auto) 0.5 % (0.0-3.0) Basophils (%) (Auto) 0.6 % (0.0-2.0) Chemistry Test 06/09/16 05:45 Sodium Level 142 mEQ/L (135-145) Potassium Level 4.6 mEQ/L (3.4-4.9) Chloride Level 108 mEQ/L (98-107) H Carbon Dioxide Level 24 mEQ/L (20-30) Anion Gap 10 (5-15) Blood Urea Nitrogen 9 mg/dL (7-23) Creatinine 0.6 mg/dL (0.5-0.9) Estimat Glomerular Filtration Rate > 60 mL/min (>60) Glucose Level 88 mg/dL (74-106) Calcium Level 8.6 mg/dL (8.6-10.2) Risk Assessment & Plan Assessment: ASA I Plan: GA Status Change Before Surgery: No Pre-Antibiotics Drug: DEREJE YAP M.D. Jun 09, 2016 13:08
[2016-06-09 16:00] VITALS: BP 114/64
[2016-06-09] MEDS ORDERED: PCA HYDROmorphone 1mg/ml 30 ML IV PRN (17:45)
--- NOTE | 2016-06-09 19:38 | General Progress Note ---
Assessment/Plan Problem List: (1) Intractable back pain Assessment & Plan: s/p I+D of buttocks POD#2 Pain control Supp care f/u Extensive lab workup to r/o DAFNE syndrome given classical symptoms and presentation f/u blood cultures Cont IV cipro Total of 31 mins of additional time was spent with this patient, above and beyond the normal face to face visit time ICD Codes: M54.9 - Dorsalgia, unspecified SNOMED: [id number] Subjective Date patient seen: Jun 09, 2016 Time patient seen: 19:37 ROS Limited/Unobtainable: No Allergies: Coded Allergies: PENICILLINS (Verified Allergy, Unknown, 06/05/16) Subjective s/p I+D of buttocks, POD#2, no periop or postop complications. No chest pain or dyspnea, postop pain well controlled. Objective Last 24 Hour Vital Signs Date Time Temp Pulse Resp B/P Pulse Ox O2 Delivery O2 Flow Rate FiO2 06/09/16 16:45 18 06/09/16 16:00 99.1 112 20 114/64 Room Air 06/09/16 12:45 18 06/09/16 11:47 99.1 107 21 102/65 97 Room Air 06/09/16 08:45 18 06/09/16 08:00 98.2 94 21 129/63 97 Nasal Cannula 2.0 06/09/16 04:45 16 06/09/16 00:45 16 06/09/16 00:00 97.7 84 18 94/57 99 Room Air 06/08/16 20:45 16 06/08/16 20:00 98.6 93 20 114/63 99 Room Air Intake and Output 06/08/16 06/09/16 19:00 07:00 Intake Total 1500 ml 840 ml Output Total 850 ml 2055 ml Balance 650 ml -1215 ml Intake Oral 1000 ml 240 ml IV Total 500 ml 600 ml Output Urine Total 500 ml 1500 ml Drainage Total 350 ml 555 ml Laboratory Tests 06/09/16 05:45: White Blood Count 16.6H, Red Blood Count 2.67L, Hemoglobin 8.8L, Hematocrit 25.2L, Mean Corpuscular Volume 95, Mean Corpuscular Hemoglobin 32.9H, Mean Corpuscular Hemoglobin Concent 34.8, Red Cell Distribution Width 11.1L, Platelet Count 243, Mean Platelet Volume 6.3L, Neutrophils (%) (Auto) 51.8, Lymphocytes (%) (Auto) 41.7, Monocytes (%) (Auto) 5.4, Eosinophils (%) (Auto) 0.5, Basophils (%) (Auto) 0.6, Sodium Level 142, Potassium Level 4.6, Chloride Level 108H, Carbon Dioxide Level 24, Anion Gap 10, Blood Urea Nitrogen 9, Creatinine 0.6, Estimat Glomerular Filtration Rate > 60, Glucose Level 88, Calcium Level 8.6 Height (Feet): 5 Height (Inches): 0.00 Weight (Pounds): 146 General Appearance: WD/WN, no apparent distress, alert EENT: PERRL/EOMI Neck: non-tender, normal alignment, supple Cardiovascular: normal peripheral pulses, normal rate, regular rhythm, no gallop/murmur, no JVD Respiratory/Chest: chest wall non-tender, lungs clear, normal breath sounds, no respiratory distress, no accessory muscle use Abdomen: normal bowel sounds, non tender, soft, no mass Extremities: normal range of motion, non-tender, normal inspection, no calf tenderness Neurologic: alert, oriented x 3, responsive, normal mood/affect Skin: normal pigmentation, warm/dry, no diaphoresis SADIE REYES Jun 09, 2016 19:38
--- NOTE | 2016-06-09 21:58 | Progress Note ---
SUBJECTIVE: The patient is complaining of lower back pain, 10/10 has been uncooperative with the staff and according to the staff she has been irritable and somewhat uncooperative. During the evaluation, the patient was cooperative and pleasant. There were no behavior issues noted. During the evaluation, she complained of pain. Sleep and appetite is adequate. MENTAL STATUS EXAMINATION: Alert and oriented x4. Mood is irritable. Affect is constricted. Congruent with mood. Thought process is linear. Thought content, no suicidal or homicidal ideation. ASSESSMENT: Stable and anxiety. PLAN: 1. . 2. She will be provided supportive therapy. Tavares Carolina M.D. DR: Andre JOB#: [id number] CC:
[2016-06-09] MEDS: LR 1000ml 1,000 ML IV SCH (23:58)
[2016-06-10] VITALS (13 sets, daily range): BP systolic 91–128; BP diastolic 55–79
[2016-06-10 07:20] LABS: BASOPHILS % (AUTO) 0.5 % (0.0-2.0); EOSINOPHILS % (AUTO) 1.1 % (0.0-3.0); LYMPHOCYTES % (AUTO) 35.8 % (20.0-45.0); MEAN CORPUSCULAR HEMOGLOBIN 31.3 PG (27.0-31.0); MEAN CORPUSCULAR HGB CONC 33.4 G/DL (32.0-36.0); MEAN CORPUSCULAR VOLUME 94 FL (80-99); MEAN PLATELET VOLUME 6.5 FL (6.5-10.1); MONOCYTES % (AUTO) 5.6 % (1.0-10.0); NEUTROPHILS % (AUTO) 56.9 % (45.0-75.0); PLATELET COUNT 253 K/UL (150-450); RED BLOOD COUNT 2.75 M/UL (4.20-5.40); RED CELL DISTRIBUTION WIDTH 11.2 % (11.6-14.8); WHITE BLOOD COUNT 14.7 K/UL (4.8-10.8)
[2016-06-10] MEDS: PCA shift volume MISC SCH ×3 (07:23→23:10)
[2016-06-10 07:35] LABS: ANION GAP 10 (5-15); CALCIUM 8.8 mg/dL (8.6-10.2); CARBON DIOXIDE 25 mEQ/L (20-30); CHLORIDE 104 mEQ/L (98-107); CREATININE 0.6 mg/dL (0.5-0.9); GLOMERULAR FILTRATION RATE > 60 mL/min (>60); HEMOLYSIS 0; POTASSIUM 4.4 mEQ/L (3.4-4.9); SODIUM 139 mEQ/L (135-145)
--- NOTE | 2016-06-10 08:41 | General Progress Note ---
Assessment/Plan Assessment/Plan (1) B/L buttock and back soft tissue necrosis, cellulitis (2) S/p staged debridement of b/l buttock and back necrotic soft tissue, flap delay and vac placement (3) Intractable pain The patient will continue on the NONPROFIT MANAGER Dilaudid, Dilaudid IV SubQ, [place] and Neurontin The patient was discussed with Dr. Frank and Dr. Frank concurred. Subjective Date patient seen: Jun 10, 2016 Time patient seen: 07:00 - am Allergies: Coded Allergies: PENICILLINS (Verified Allergy, Unknown, 06/05/16) Subjective REVIEW OF SYSTEMS: Denies rash, fever, chills, sweating, dizziness, drowsiness, blurred vision, sore throat, or change in her weight. No shortness of breath or chest pain. No nausea, vomiting, diarrhea, or blood in the stool or urine. No bowel or bladder incontinence. No dysuria. Complaining of back and buttock pain. SUBJECTIVE: Pt is comfortable at this time and is looking forward to surgery today. Her pain is stable on the medications. Objective Last 24 Hour Vital Signs Date Time Temp Pulse Resp B/P Pulse Ox O2 Delivery O2 Flow Rate FiO2 06/10/16 08:15 98.6 111 20 101/55 97 Room Air 06/10/16 04:45 18 06/10/16 04:00 98.4 112 18 113/65 97 Room Air 06/10/16 00:45 18 06/10/16 00:00 97.8 112 18 122/77 98 Room Air 06/09/16 20:49 99.1 06/09/16 20:10 18 06/09/16 16:45 18 06/09/16 16:00 99.1 112 20 114/64 Room Air 06/09/16 12:45 18 06/09/16 11:47 99.1 107 21 102/65 97 Room Air 06/09/16 08:45 18 Intake and Output 06/09/16 06/10/16 19:00 07:00 Intake Total 1520 ml 900 ml Output Total 80 ml Balance 1520 ml 820 ml Intake Oral 720 ml IV Total 800 ml 900 ml Drainage Total 80 ml # Voids 4 5 Laboratory Tests 06/10/16 05:45: White Blood Count 14.7H, Red Blood Count 2.75L, Hemoglobin 8.6L, Hematocrit 25.8L, Mean Corpuscular Volume 94, Mean Corpuscular Hemoglobin 31.3H, Mean Corpuscular Hemoglobin Concent 33.4, Red Cell Distribution Width 11.2L, Platelet Count 253, Mean Platelet Volume 6.5, Neutrophils (%) (Auto) 56.9, Lymphocytes (%) (Auto) 35.8, Monocytes (%) (Auto) 5.6, Eosinophils (%) (Auto) 1.1, Basophils (%) (Auto) 0.5, Sodium Level 139, Potassium Level 4.4, Chloride Level 104, Carbon Dioxide Level 25, Anion Gap 10, Blood Urea Nitrogen 5L, Creatinine 0.6, Estimat Glomerular Filtration Rate > 60, Glucose Level 91, Calcium Level 8.8 Height (Feet): 5 Height (Inches): 0.00 Weight (Pounds): 146 Objective PHYSICAL EXAMINATION: GENERAL: Alert, awake, and oriented x3. HEENT: PERRLA. NECK: Range of motion is full in all directions. No tenderness to the paracervical muscles. No adenopathy. LUNGS: Clear. HEART: Regular. ABDOMEN: Benign. BACK: Range of motion is decreased in flexion and extension with tenderness to paraspinal muscles with wound VAC seen and placed with tenderness to palpation on the buttock area. EXTREMITIES: No cyanosis. No clubbing. No edema. NEURO: No changes. SONIA IRAHETA Jun 10, 2016 08:41
[2016-06-10] MEDS: Docusate 100mg cap ORAL SCH ×2 (09:00→20:05)
[2016-06-10] MEDS: LR 1000ml 1,000 ML IV SCH ×4 (10:00→21:32)
[2016-06-10] MEDS ORDERED: Bacitracin 50000 Units Vial ONE (10:13)
--- NOTE | 2016-06-10 11:15 | Pre-Procedure Note/Attestation ---
Pre-Procedure Note/Attestation Complete Prior to Procedure Planned Procedure: bilateral Procedure Narrative: staged debridement of bilateral buttock and hip necrotic soft tiisue and flap closure Indications for Procedure Pre-Operative Diagnosis: b/l buttock back and hip necrotic soft tissue Attestation I attest that I discussed the nature of the procedure; its benefits; risks and complications; and alternatives (and the risks and benefits of such alternatives ), prior to the procedure, with the patient (or the patient's legal ambulatory service representative). I attest that, if there was a reasonable possibility of needing a blood transfusion, the patient (or the patient's legal ambulatory service representative) was given the [facility] standardized written summary, pursuant to the Prasanna Jennifer Blood Safety Act ([place] Health and Safety Code # 1645, as amended). I attest that I re-evaluated the patient just prior to the surgery and that there has been no change in the patient's H&P, except as documented below: Kanwal Sandy M.D. (Steven) Jun 10, 2016 11:15
[2016-06-10] MEDS ORDERED: NS Irrig 1000ml ONE (11:30)
[2016-06-10] MEDS ORDERED: Zemuron 50mg/5ml Inj IV ONE (11:30)
[2016-06-10] MEDS ORDERED: Dexamethasone 4mg/ml vial ONE (11:30)
[2016-06-10] MEDS ORDERED: LR 1000ml ONE (11:30)
[2016-06-10] MEDS ORDERED: Sterile Water Irrig 1000ml IRRIG ONE (11:30)
[2016-06-10] MEDS ORDERED: fentaNYL 250mcg/5ml ONE (11:30)
[2016-06-10] MEDS ORDERED: Metoclopramide 10mg/2ml Inj ONE (11:30)
[2016-06-10] MEDS ORDERED: Propofol 10mg/ml 20ml IV ONE (11:30)
[2016-06-10] MEDS ORDERED: Midazolam 2mg/2ml Inj ONE (11:30)
[2016-06-10] MEDS ORDERED: Lidocaine 1% MPF 10mg/ml 5ml ONE (11:30)
--- NOTE | 2016-06-10 12:11 | Immediate Post-Op Evaluation ---
Immediate Post-Op Evalulation Immediate Post-Op Evalulation Procedure: Staged debriedment of bilateral buttock and low back soft tissue Date of Evaluation: Jun 10, 2016 Time of Evaluation: 14:55 IV Fluids: 1.4L Blood Products: 0 Estimated Blood Loss: 250 Urinary Output: 0 Blood Pressure Systolic: 91 Blood Pressure Diastolic: 58 Pulse Rate: 102 Respiratory Rate: 17 O2 Sat by Pulse Oximetry: 100 Temperature (Fahrenheit): 97.2 Pain Score (1-10): 0 Nausea: No Vomiting: No Complications 0 Patient Status: awake, reacts, patent, none Hydration Status: adequate Drug: On floor pre-op Given Within 1 Hr of Incision: Yes DEREJE SADLER M.D. Jun 10, 2016 12:11
[2016-06-10] MEDS ORDERED: LR 1000ml 1,000 ML IVLG SCH (12:12)
[2016-06-10] MEDS ORDERED: DiphenhydrAMINE 50mg/ml Inj IVP PRN (12:15)
[2016-06-10] MEDS ORDERED: Ketorolac 30mg Inj IV PRN (12:15)
[2016-06-10] MEDS ORDERED: Metoclopramide 10mg/2ml Inj IVP PRN (12:15)
[2016-06-10] MEDS ORDERED: fentaNYL 100 mcg/2 mL IV PRN (12:15)
[2016-06-10] MEDS ORDERED: Labetalol 5mg/ml 20ml vial IV PRN (12:15)
[2016-06-10] MEDS ORDERED: Hydromorphone 0.5mg/0.5ml inj IVP PRN (12:15)
[2016-06-10] MEDS ORDERED: Midazolam 2mg/2ml Inj IVP PRN (12:15)
[2016-06-10] MEDS ORDERED: LORazepam Inj 2mg/ml 1ml IV PRN (12:15)
[2016-06-10 12:23] LABS: IMMUNCOMPLEX BY C1Q BINDING < 1.2 ug Eq/mL (.)
--- NOTE | 2016-06-10 14:40 | General Progress Note ---
Assessment/Plan Problem List: (1) Intractable back pain Assessment & Plan: s/p I+D of buttocks POD#3 For stage 2 surgery today, further debridement Pain control Supp care f/u Extensive lab workup to r/o DAFNE syndrome given classical symptoms and presentation f/u blood cultures Cont IV cipro Total of 31 mins of additional time was spent with this patient, above and beyond the normal face to face visit time ICD Codes: M54.9 - Dorsalgia, unspecified SNOMED: [id number] Subjective Date patient seen: Jun 10, 2016 ROS Limited/Unobtainable: No Constitutional: Denies: chills, diaphoresis, fever, malaise, no symptoms, other , weakness HEENT: Denies: blurred vision, double vision, ear discharge, ear pain, eye pain , mouth pain, mouth swelling, no symptoms, nose congestion, nose pain, other, tearing, throat pain, throat swelling Cardiovascular: Denies: chest pain, edema, irregular heart rate, lightheadedness, no symptoms, other, palpitations, syncope Respiratory: Denies: SOB at rest, SOB with excertion, cough, no symptoms, orthopnea, other, shortness of breath, sputum, stridor, wheezing Gastrointestinal/Abdominal: Denies: abdomen distended, abdominal pain, black stools, blood in stool, constipated, diarrhea, difficulty swallowing, nausea, no symptoms, other, poor appetite, poor fluid intake, rectal bleeding, tarry stools, vomiting Genitourinary: Denies: burning, discharge, flank pain, frequency, hematuria, incontinence, no symptoms, other, pain, urgency Neurologic/Psychiatric: Denies: anxiety, depressed, emotional problems, headache, no symptoms, numbness, other, paresthesia, pre-existing deficit, seizure, tingling, tremors, weakness Endocrine: Denies: excessive sweating, flushing, increased hunger, increased thirst, increased urine, intolerance to cold, intolerance to heat, no symptoms, other, unexplained weight gain, unexplained weight loss Hematologic/Lymphatic: Denies: anemia, easy bleeding, easy bruising, no symptoms, other Allergies: Coded Allergies: PENICILLINS (Verified Allergy, Unknown, 06/05/16) Subjective s/p I+D of buttocks, POD#3, no periop or postop complications. No chest pain or dyspnea, postop pain well controlled. Objective Last 24 Hour Vital Signs Date Time Temp Pulse Resp B/P Pulse Ox O2 Delivery O2 Flow Rate FiO2 06/10/16 08:45 17 06/10/16 08:15 98.6 111 20 101/55 97 Room Air 06/10/16 04:45 18 06/10/16 04:00 98.4 112 18 113/65 97 Room Air 06/10/16 00:45 18 06/10/16 00:00 97.8 112 18 122/77 98 Room Air 06/09/16 20:49 99.1 06/09/16 20:10 18 06/09/16 16:45 18 06/09/16 16:00 99.1 112 20 114/64 Room Air Intake and Output 06/09/16 06/10/16 19:00 07:00 Intake Total 1520 ml 1000 ml Output Total 80 ml Balance 1520 ml 920 ml Intake Oral 720 ml IV Total 800 ml 1000 ml Drainage Total 80 ml # Voids 4 5 Laboratory Tests 06/10/16 05:45: White Blood Count 14.7H, Red Blood Count 2.75L, Hemoglobin 8.6L, Hematocrit 25.8L, Mean Corpuscular Volume 94, Mean Corpuscular Hemoglobin 31.3H, Mean Corpuscular Hemoglobin Concent 33.4, Red Cell Distribution Width 11.2L, Platelet Count 253, Mean Platelet Volume 6.5, Neutrophils (%) (Auto) 56.9, Lymphocytes (%) (Auto) 35.8, Monocytes (%) (Auto) 5.6, Eosinophils (%) (Auto) 1.1, Basophils (%) (Auto) 0.5, Sodium Level 139, Potassium Level 4.4, Chloride Level 104, Carbon Dioxide Level 25, Anion Gap 10, Blood Urea Nitrogen 5L, Creatinine 0.6, Estimat Glomerular Filtration Rate > 60, Glucose Level 91, Calcium Level 8.8 Height (Feet): 5 Height (Inches): 0.00 Weight (Pounds): 146 Objective General: alert, cooperative, no distress, appears stated age Head: normocephalic, without obvious abnormality, atraumatic Eyes: conjunctivae/corneas clear. PERRL, EOM's intact Throat: lips, mucosa, and tongue normal. MMM Neck: supple, symmetrical, trachea midline, and no JVD Lungs: clear to auscultation bilaterally Heart: regular rate and rhythm, S1, S2 normal, no murmur, click, rub or gallop Abdomen: soft, non-tender, non-distended, bowel sounds normal; no masses or organomegaly Extremities: extremities normal, atraumatic, no cyanosis or edema Pulses: 2+ and symmetric Skin: skin color, texture, turgor normal; no rashes or lesions Neurologic: grossly normal, no focal deficits SADIE REYES Jun 10, 2016 14:40
--- NOTE | 2016-06-10 14:49 | Operative Note - PDOC ---
Operative Note Operative Note Pre-op Diagnosis: b/l buttock back and hip necrotic soft tissue Procedure: staged debridement of b/l buttocks and hip necrotic soft tissue, advancement flap closure Post-op Diagnosis: same as above Post-op Diagnosis: same as pre-op Surgeon: socorro Printer Technician: myke Anesthesiologist: aubree Anesthesia: general Specimen: yes Complications: none Condition: stable Estimated Blood Loss: volume - 250 Drains: wound vac Implant(s) used?: No Kanwal Sandy M.D. (Steven) Jun 10, 2016 14:49
[2016-06-10] MEDS ORDERED: Rate Change PCA 1 Each MISC PRN (15:45)
[2016-06-10] MEDS ORDERED: PCA HYDROmorphone 1mg/ml 30 ML IV PRN (15:45)
[2016-06-11] VITALS: BP 105/65
[2016-06-11] MEDS: Norco 10mg/325mg tab ORAL PRN ×2 (00:59→09:15)
[2016-06-11 04:00] VITALS: BP 108/60
[2016-06-11] MEDS: LR 1000ml 1,000 ML IV SCH ×3 (06:16→19:00)
[2016-06-11 07:07] LABS: MEAN CORPUSCULAR HEMOGLOBIN 31.4 PG (27.0-31.0); MEAN CORPUSCULAR HGB CONC 33.5 G/DL (32.0-36.0); MEAN CORPUSCULAR VOLUME 94 FL (80-99); MEAN PLATELET VOLUME 6.3 FL (6.5-10.1); PLATELET COUNT 254 K/UL (150-450); RED BLOOD COUNT 2.25 M/UL (4.20-5.40); RED CELL DISTRIBUTION WIDTH 11.3 % (11.6-14.8); WHITE BLOOD COUNT 13.8 K/UL (4.8-10.8)
[2016-06-11] MEDS: PCA shift volume MISC SCH ×3 (07:21→23:00)
[2016-06-11 07:43] LABS: ANION GAP 11 (5-15); CALCIUM 8.6 mg/dL (8.6-10.2); CARBON DIOXIDE 26 mEQ/L (20-30); CHLORIDE 104 mEQ/L (98-107); CREATININE 0.6 mg/dL (0.5-0.9); GLOMERULAR FILTRATION RATE > 60 mL/min (>60); HEMOLYSIS 2; POTASSIUM 4.3 mEQ/L (3.4-4.9); SODIUM 141 mEQ/L (135-145)
[2016-06-11 07:58] VITALS: BP 101/59
[2016-06-11] MEDS: Docusate 100mg cap ORAL SCH ×2 (09:00→21:57)
[2016-06-11 09:27] LABS: BAND NEUTROPHILS % (MANUAL) 3 % (0-8); EOSINOPHILS % (MANUAL) 1 % (0-3); LYMPHOCYTES % (MANUAL) 27 % (20-45); NEUTROPHILS % (MANUAL) 66 % (45-75); PLATELET MORPHOLOGY NORMAL; TOTAL CELLS COUNTED 100
[2016-06-11 09:28] LABS: BASOPHILS % (MANUAL) 0 % (0-2); PLATELET ESTIMATE ADEQUATE
--- NOTE | 2016-06-11 09:40 | General Progress Note ---
Assessment/Plan Assessment/Plan (1) B/L buttock and back soft tissue necrosis, cellulitis (2) S/p staged debridement of b/l buttock and back necrotic soft tissue, flap advancement (3) Intractable pain The patient will continue on the RAZOR SHARPENER Dilaudid, Dilaudid IV SubQ, [place] and Neurontin A RX was written for [place] 10/325mg PO 1 tab Q4-6H PRN pain 30 tabs in anticipation for discharge. The patient was discussed with Dr. Frank and Dr. Frank concurred. Subjective Date patient seen: Jun 11, 2016 Time patient seen: 08:15 - am Allergies: Coded Allergies: PENICILLINS (Verified Allergy, Unknown, 06/05/16) Subjective REVIEW OF SYSTEMS: Denies rash, fever, chills, sweating, dizziness, drowsiness, blurred vision, sore throat, or change in her weight. No shortness of breath or chest pain. No nausea, vomiting, diarrhea, or blood in the stool or urine. No bowel or bladder incontinence. No dysuria. Complaining of back and buttock pain. SUBJECTIVE: Pain has been stable and is a 6/10 at this time. RX will be written in anticipation for discharge. Objective Last 24 Hour Vital Signs Date Time Temp Pulse Resp B/P Pulse Ox O2 Delivery O2 Flow Rate FiO2 06/11/16 07:58 97.7 110 21 101/59 97 Room Air 06/11/16 04:45 16 06/11/16 04:00 98.2 105 18 108/60 98 Room Air 06/11/16 00:45 16 06/11/16 00:00 98.2 118 18 105/65 98 Room Air 06/10/16 20:45 15 06/10/16 19:00 98.3 97 18 117/69 96 Room Air 06/10/16 16:45 13 06/10/16 16:30 98.3 99 13 114/70 100 Nasal Cannula 3.0 06/10/16 16:28 98.3 06/10/16 16:25 13 06/10/16 16:15 103 13 113/73 97 Nasal Cannula 3.0 06/10/16 16:10 10 06/10/16 16:00 97 12 117/74 97 Nasal Cannula 3.0 06/10/16 15:58 12 06/10/16 15:45 99 12 117/72 97 Nasal Cannula 3.0 06/10/16 15:30 105 17 115/77 97 Nasal Cannula 3.0 06/10/16 15:15 110 19 128/79 97 Simple Mask 6.0 06/10/16 15:00 104 11 113/75 97 Simple Mask 6.0 06/10/16 14:55 106 19 93/56 97 Simple Mask 6.0 06/10/16 14:55 102 17 100 06/10/16 14:50 97.2 103 29 91/58 97 Simple Mask 6.0 Intake and Output 06/10/16 06/11/16 19:00 07:00 Intake Total 2000 ml 1400 ml Output Total 415 ml 300 ml Balance 1585 ml 1100 ml Intake Oral 300 ml IV Total 600 ml 1100 ml Hemodialysis 1400 ml Drainage Total 115 ml 243 ml Estimated Blood Loss 250 ml Other 50 ml 57 ml # Voids 1 6 Laboratory Tests 06/11/16 04:30: White Blood Count 13.8H, Red Blood Count 2.25L, Hemoglobin 7.0L, Hematocrit 21.1L, Mean Corpuscular Volume 94, Mean Corpuscular Hemoglobin 31.4H, Mean Corpuscular Hemoglobin Concent 33.5, Red Cell Distribution Width 11.3L, Platelet Count 254, Mean Platelet Volume 6.3L, Neutrophils (%) (Auto) , Lymphocytes (%) (Auto) , Monocytes (%) (Auto) , Eosinophils (%) (Auto) , Basophils (%) (Auto) , Differential Total Cells Counted 100, Neutrophils % ( Manual) 66, Lymphocytes % (Manual) 27, Monocytes % (Manual) 3, Eosinophils % ( Manual) 1, Basophils % (Manual) 0, Band Neutrophils 3, Platelet Estimate Adequate, Platelet Morphology Normal, Red Blood Cell Morphology Normal, Sodium Level 141, Potassium Level 4.3, Chloride Level 104, Carbon Dioxide Level 26, Anion Gap 11, Blood Urea Nitrogen 8, Creatinine 0.6, Estimat Glomerular Filtration Rate > 60, Glucose Level 120H, Calcium Level 8.6 Height (Feet): 5 Height (Inches): 0.00 Weight (Pounds): 146 Objective PHYSICAL EXAMINATION: GENERAL: Alert, awake, and oriented x3. HEENT: PERRLA. NECK: Range of motion is full in all directions. No tenderness to the paracervical muscles. No adenopathy. LUNGS: Clear. HEART: Regular. ABDOMEN: Benign. BACK: Range of motion is decreased in flexion and extension with tenderness to paraspinal muscles with wound VAC seen and placed with tenderness to palpation on the buttock area. EXTREMITIES: No cyanosis. No clubbing. No edema. NEURO: No changes. SONIA IRAHETA. Jun 11, 2016 09:40
[2016-06-11] MEDS ORDERED: Rate Change PCA 1 Each MISC PRN (10:00)
[2016-06-11] MEDS ORDERED: PCA HYDROmorphone 1mg/ml 30 ML IV PRN (10:00)
[2016-06-11 12:00] VITALS: BP 108/63
[2016-06-11 16:00] VITALS: BP 99/51
--- NOTE | 2016-06-11 16:25 | General Progress Note ---
Progress Note Progress Note pt without any c/o AF/ HR 118 H/H decreased to 11/19 PE: incisional VAC in place JPs appropriate SS (-) collections/signs of infection A/P. 1. daily CBC; if pt symptomatic may need PRBC transfusion; pt refusion transfusion at this time 2. OOB/ DVT ppx/cont Abx 3. ARI teaching; cont all 5 ARI's 4. will change to Provena Plus home incisional VAC prior to d/c 5. d/c home Sun/Mon with 2 weeks Cipro 500 PO BID and pain Rx 6. no showers until all drains are out 7. limit supine time to 4 hrs/24 hrs; minimal sitting 8. f/u out pt next Sat 9. Iron sulfate ordered Josephine Davenport M.D. Jun 11, 2016 16:25
--- NOTE | 2016-06-11 17:06 | General Progress Note ---
Assessment/Plan Problem List: (1) Intractable back pain Assessment & Plan: s/p I+D of buttocks POD#4 s/p stage 2 surgery POD#1 Pain control Supp care f/u Extensive lab workup to r/o DAFNE syndrome given classical symptoms and presentation f/u blood cultures Cont IV cipro Total of 31 mins of additional time was spent with this patient, above and beyond the normal face to face visit time ICD Codes: M54.9 - Dorsalgia, unspecified SNOMED: 272226365 (2) Anemia due to acute blood loss Assessment & Plan: Start venofer 100mg IV daily, no need to transfuse prbcs at this time, pt is asymptomatic and baseline hgb 10 ICD Codes: D62 - Acute posthemorrhagic anemia SNOMED: 757178985 (3) Anemia of chronic illness Assessment & Plan: Start venofer 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 No chest pain or dyspnea, postop pain well controlled. No lightheadedness or dizziness, denies headache Objective Last 24 Hour Vital Signs Date Time Temp Pulse Resp B/P Pulse Ox O2 Delivery O2 Flow Rate FiO2 06/11/16 16:00 98.1 101 16 99/51 99 Room Air 06/11/16 12:45 16 06/11/16 12:00 97.9 118 18 108/63 97 Room Air 06/11/16 10:14 97.9 06/11/16 08:45 16 06/11/16 07:58 97.7 110 21 101/59 97 Room Air 06/11/16 04:45 16 06/11/16 04:00 98.2 105 18 108/60 98 Room Air 06/11/16 00:45 16 06/11/16 00:00 98.2 118 18 105/65 98 Room Air 06/10/16 20:45 15 06/10/16 19:00 98.3 97 18 117/69 96 Room Air Intake and Output 06/10/16 06/11/16 19:00 07:00 Intake Total 2000 ml 1400 ml Output Total 415 ml 300 ml Balance 1585 ml 1100 ml Intake Oral 300 ml IV Total 600 ml 1100 ml Hemodialysis 1400 ml Drainage Total 115 ml 243 ml Estimated Blood Loss 250 ml Other 50 ml 57 ml # Voids 1 6 Laboratory Tests 06/11/16 04:30: White Blood Count 13.8H, Red Blood Count 2.25L, Hemoglobin 7.0L, Hematocrit 21.1L, Mean Corpuscular Volume 94, Mean Corpuscular Hemoglobin 31.4H, Mean Corpuscular Hemoglobin Concent 33.5, Red Cell Distribution Width 11.3L, Platelet Count 254, Mean Platelet Volume 6.3L, Neutrophils (%) (Auto) , Lymphocytes (%) (Auto) , Monocytes (%) (Auto) , Eosinophils (%) (Auto) , Basophils (%) (Auto) , Differential Total Cells Counted 100, Neutrophils % ( Manual) 66, Lymphocytes % (Manual) 27, Monocytes % (Manual) 3, Eosinophils % ( Manual) 1, Basophils % (Manual) 0, Band Neutrophils 3, Platelet Estimate Adequate, Platelet Morphology Normal, Red Blood Cell Morphology Normal, Sodium Level 141, Potassium Level 4.3, Chloride Level 104, Carbon Dioxide Level 26, Anion Gap 11, Blood Urea Nitrogen 8, Creatinine 0.6, Estimat Glomerular Filtration Rate > 60, Glucose Level 120H, Calcium Level 8.6 Height (Feet): 5 Height (Inches): 0.00 Weight (Pounds): 146 Objective General: alert, cooperative, no distress, appears stated age Head: normocephalic, without obvious abnormality, atraumatic Eyes: conjunctivae/corneas clear. PERRL, EOM's intact Throat: lips, mucosa, and tongue normal. MMM Neck: supple, symmetrical, trachea midline, and no JVD Lungs: clear to auscultation bilaterally Heart: regular rate and rhythm, S1, S2 normal, no murmur, click, rub or gallop Abdomen: soft, non-tender, non-distended, bowel sounds normal; no masses or organomegaly Extremities: extremities normal, atraumatic, no cyanosis or edema Pulses: 2+ and symmetric Skin: skin color, texture, turgor normal; no rashes or lesions Neurologic: grossly normal, no focal deficits SADIE REYES Jun 11, 2016 17:06
[2016-06-11 20:00] VITALS: BP 106/57
[2016-06-11] MEDS: Iron Sucrose 100 MG in NS 55 ML IVPB SCH (21:57)
[2016-06-12] VITALS (7 sets, daily range): BP systolic 104–116; BP diastolic 58–73
[2016-06-12] MEDS: LR 1000ml 1,000 ML IV SCH ×3 (04:16→23:58)
[2016-06-12] MEDS: PCA shift volume MISC SCH ×3 (07:33→23:00)
[2016-06-12 07:37] LABS: MEAN CORPUSCULAR HEMOGLOBIN 31.5 PG (27.0-31.0); MEAN CORPUSCULAR VOLUME 95 FL (80-99); MEAN PLATELET VOLUME 6.4 FL (6.5-10.1); PLATELET COUNT 273 K/UL (150-450); RED BLOOD COUNT 2.15 M/UL (4.20-5.40); RED CELL DISTRIBUTION WIDTH 11.7 % (11.6-14.8)
[2016-06-12 08:07] LABS: ANION GAP 12 (5-15); CALCIUM 8.6 mg/dL (8.6-10.2); CARBON DIOXIDE 27 mEQ/L (20-30); CHLORIDE 102 mEQ/L (98-107); CREATININE 0.6 mg/dL (0.5-0.9); GLOMERULAR FILTRATION RATE > 60 mL/min (>60); HEMOLYSIS 10; POTASSIUM 4.1 mEQ/L (3.4-4.9); SODIUM 141 mEQ/L (135-145)
[2016-06-12] MEDS: Docusate 100mg cap ORAL SCH ×2 (08:44→21:29)
[2016-06-12 11:05] LABS: BAND NEUTROPHILS % (MANUAL) 0 % (0-8); BASOPHILS % (MANUAL) 0 % (0-2); EOSINOPHILS % (MANUAL) 2 % (0-3); LYMPHOCYTES % (MANUAL) 43 % (20-45); NEUTROPHILS % (MANUAL) 51 % (45-75); PLATELET ESTIMATE ADEQUATE; PLATELET MORPHOLOGY NORMAL; TOTAL CELLS COUNTED 100
[2016-06-12 11:06] LABS: HYPOCHROMASIA 1+; POLYCHROMASIA 1+
--- NOTE | 2016-06-12 12:11 | General Progress Note ---
Assessment/Plan Problem List: (1) Intractable back pain Assessment & Plan: s/p I+D of buttocks POD#5 s/p stage 2 surgery POD#2 Pain control Supp care f/u Extensive lab workup to r/o DAFNE syndrome given classical symptoms and presentation f/u blood cultures Cont IV cipro Total of 31 mins of additional time was spent with this patient, above and beyond the normal face to face visit time ICD Codes: M54.9 - Dorsalgia, unspecified SNOMED: 035692694 (2) Anemia due to acute blood loss Assessment & Plan: Cont venofer 100mg IV daily Transfuse 2u prbcs now given pt hgb 6.8 ICD Codes: D62 - Acute posthemorrhagic anemia SNOMED: 314017821 (3) Anemia of chronic illness Assessment & Plan: Cont venofer 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 No chest pain or dyspnea, postop pain well controlled. No lightheadedness or dizziness, denies headache Objective Last 24 Hour Vital Signs Date Time Temp Pulse Resp B/P Pulse Ox O2 Delivery O2 Flow Rate FiO2 06/12/16 11:40 98.4 109 18 112/65 99 Room Air 06/12/16 09:05 98.4 06/12/16 08:12 98.4 114 20 104/67 98 Room Air 06/12/16 04:45 18 06/12/16 04:00 97.3 109 18 116/68 100 Room Air 06/12/16 00:45 18 06/12/16 00:00 97.9 94 18 105/64 97 Room Air 06/11/16 20:45 16 06/11/16 20:00 98.1 99 16 106/57 99 Room Air 06/11/16 16:45 16 06/11/16 16:00 98.1 101 16 99/51 99 Room Air 06/11/16 12:45 16 Intake and Output 06/11/16 06/12/16 19:00 07:00 Intake Total 1460 ml 1820 ml Output Total 140 ml 785 ml Balance 1320 ml 1035 ml Intake Oral 560 ml 620 ml IV Total 900 ml 1200 ml Output Urine Total 600 ml Drainage Total 140 ml 185 ml # Voids 2 6 Laboratory Tests 06/12/16 06:30: White Blood Count 16.0H, Red Blood Count 2.15L, Hemoglobin 6.8*L, Hematocrit 20.5L, Mean Corpuscular Volume 95, Mean Corpuscular Hemoglobin 31.5H, Mean Corpuscular Hemoglobin Concent 33.0, Red Cell Distribution Width 11.7, Platelet Count 273, Mean Platelet Volume 6.4L, Neutrophils (%) (Auto) , Lymphocytes (%) ( Auto) , Monocytes (%) (Auto) , Eosinophils (%) (Auto) , Basophils (%) (Auto) , Differential Total Cells Counted 100, Neutrophils % (Manual) 51, Lymphocytes % ( Manual) 43, Monocytes % (Manual) 4, Eosinophils % (Manual) 2, Basophils % ( Manual) 0, Band Neutrophils 0, Platelet Estimate Adequate, Platelet Morphology Normal, Polychromasia 1+, Hypochromasia 1+, Sodium Level 141, Potassium Level 4.1, Chloride Level 102, Carbon Dioxide Level 27, Anion Gap 12, Blood Urea Nitrogen 7, Creatinine 0.6, Estimat Glomerular Filtration Rate > 60, Glucose Level 89, Calcium Level 8.6 Height (Feet): 5 Height (Inches): 0.00 Weight (Pounds): 146 Objective General: alert, cooperative, no distress, appears stated age Head: normocephalic, without obvious abnormality, atraumatic Eyes: conjunctivae/corneas clear. PERRL, EOM's intact Throat: lips, mucosa, and tongue normal. MMM Neck: supple, symmetrical, trachea midline, and no JVD Lungs: clear to auscultation bilaterally Heart: regular rate and rhythm, S1, S2 normal, no murmur, click, rub or gallop Abdomen: soft, non-tender, non-distended, bowel sounds normal; no masses or organomegaly Extremities: extremities normal, atraumatic, no cyanosis or edema Pulses: 2+ and symmetric Skin: skin color, texture, turgor normal; no rashes or lesions Neurologic: grossly normal, no focal deficits SADIE REYES Jun 12, 2016 12:11
--- NOTE | 2016-06-12 13:04 | General Progress Note ---
Progress Note Progress Note pt lightheaded and tachcardic AF/VSS H/H decreased to 6.8/20 PE: incisional VAC in place JPs appropriate SS (-) collections/signs of infection A/P. 1. daily CBC; xfuse 2 u PRBC 2. OOB/ DVT ppx/cont Abx 3. ARI teaching; cont all 5 ARI's 4. will change to Provena Plus home incisional VAC prior to d/c 5. d/c home Mon with 2 weeks Cipro 500 PO BID and pain Rx 6. no showers until all drains are out 7. limit supine time to 4 hrs/24 hrs; minimal sitting 8. f/u out pt next Sat 9. transition to oral pain rx per pain Josephine Celestin M.D. Jun 12, 2016 13:04
[2016-06-12] MEDS ORDERED: LR 1000ml ONE (17:14)
[2016-06-12] MEDS ORDERED: NS 275ml ONE ×2 (17:14→19:00)
[2016-06-12] MEDS ORDERED: Tubing Blood Filter IV ONE ×2 (17:14→19:00)
[2016-06-12] MEDS ORDERED: Tubing IV Secondary IV ONE (17:14)
[2016-06-12] MEDS: Iron Sucrose 100 MG in NS 55 ML IVPB SCH (21:00)
[2016-06-13] VITALS: BP 110/64
[2016-06-13] MEDS: PCA shift volume MISC SCH (07:00)
[2016-06-13 08:01] LABS: BASOPHILS % (AUTO) 0.7 % (0.0-2.0); EOSINOPHILS % (AUTO) 1.5 % (0.0-3.0); LYMPHOCYTES % (AUTO) 36.7 % (20.0-45.0); MEAN CORPUSCULAR HEMOGLOBIN 30.8 PG (27.0-31.0); MEAN CORPUSCULAR HGB CONC 33.5 G/DL (32.0-36.0); MEAN CORPUSCULAR VOLUME 92 FL (80-99); MEAN PLATELET VOLUME 5.9 FL (6.5-10.1); MONOCYTES % (AUTO) 7.2 % (1.0-10.0); NEUTROPHILS % (AUTO) 53.9 % (45.0-75.0); PLATELET COUNT 277 K/UL (150-450); RED CELL DISTRIBUTION WIDTH 12.3 % (11.6-14.8); WHITE BLOOD COUNT 13.6 K/UL (4.8-10.8)
[2016-06-13 08:18] VITALS: BP 114/69
[2016-06-13 08:22] LABS: ANION GAP 11 (5-15); CALCIUM 8.9 mg/dL (8.6-10.2); CARBON DIOXIDE 29 mEQ/L (20-30); CHLORIDE 100 mEQ/L (98-107); CREATININE 0.6 mg/dL (0.5-0.9); GLOMERULAR FILTRATION RATE > 60 mL/min (>60); HEMOLYSIS 0; SODIUM 140 mEQ/L (135-145)
[2016-06-13] MEDS: Docusate 100mg cap ORAL SCH ×2 (09:19→20:23)
[2016-06-13] MEDS: LR 1000ml 1,000 ML IV SCH ×2 (10:00→11:13)
[2016-06-13] MEDS ORDERED: HYDROmorphone 1mg/ml Carpuject IVP PRN (10:01)
--- NOTE | 2016-06-13 10:43 | General Progress Note ---
Assessment/Plan Assessment/Plan (1) B/L buttock and back soft tissue necrosis, cellulitis (2) S/p staged debridement of b/l buttock and back necrotic soft tissue, flap advancement (3) Intractable pain The patient will continue on the Dilaudid IV [place] and increase Neurontin 300mg TID. We will discontinue PODIATRY DOCTOR Dilaudid and Dilaudid SubQ The patient was discussed with Dr. Frank and Dr. Frank concurred. Subjective Date patient seen: Jun 13, 2016 Time patient seen: 08:15 - am Allergies: Coded Allergies: PENICILLINS (Verified Allergy, Unknown, 06/05/16) Subjective REVIEW OF SYSTEMS: Denies rash, fever, chills, sweating, dizziness, drowsiness, blurred vision, sore throat, or change in her weight. No shortness of breath or chest pain. No nausea, vomiting, diarrhea, or blood in the stool or urine. No bowel or bladder incontinence. No dysuria. Complaining of back and buttock pain. SUBJECTIVE: Pt is c/o severe pain which is 9/10 and reduced on Dilaudid. She has used only 1.4mg of the PODIATRY DOCTOR and uses the Dilaudid IV. I d/w pt about discontinuing the PODIATRY DOCTOR and she agrees. Objective Last 24 Hour Vital Signs Date Time Temp Pulse Resp B/P Pulse Ox O2 Delivery O2 Flow Rate FiO2 06/13/16 08:45 20 06/13/16 08:18 98.2 109 19 114/69 97 Room Air 06/13/16 04:45 20 06/13/16 00:45 20 06/13/16 00:00 97.9 102 20 110/64 97 Room Air 06/12/16 20:45 18 06/12/16 20:00 98.6 101 20 112/58 99 Room Air 06/12/16 17:30 98.4 104 18 107/67 99 Room Air 06/12/16 16:45 18 06/12/16 15:44 97.9 115 20 115/73 99 Room Air 06/12/16 12:45 18 06/12/16 11:49 97.9 06/12/16 11:40 98.4 109 18 112/65 99 Room Air Intake and Output 06/12/16 06/13/16 19:00 07:00 Intake Total 1000 ml 500 ml Output Total 865 ml 553 ml Balance 135 ml -53 ml Intake Oral 500 ml IV Total 500 ml 500 ml Output Urine Total 800 ml 375 ml Drainage Total 65 ml 178 ml # Voids 5 Laboratory Tests 06/13/16 07:10: White Blood Count 13.6H, Red Blood Count 3.20L, Hemoglobin 9.9#L, Hematocrit 29.5#L, Mean Corpuscular Volume 92, Mean Corpuscular Hemoglobin 30.8, Mean Corpuscular Hemoglobin Concent 33.5, Red Cell Distribution Width 12.3, Platelet Count 277, Mean Platelet Volume 5.9L, Neutrophils (%) (Auto) 53.9, Lymphocytes ( %) (Auto) 36.7, Monocytes (%) (Auto) 7.2, Eosinophils (%) (Auto) 1.5, Basophils (%) (Auto) 0.7, Sodium Level 140, Potassium Level 4.0, Chloride Level 100, Carbon Dioxide Level 29, Anion Gap 11, Blood Urea Nitrogen 5L, Creatinine 0.6, Estimat Glomerular Filtration Rate > 60, Glucose Level 85, Calcium Level 8.9 Height (Feet): 5 Height (Inches): 0.00 Weight (Pounds): 146 Objective PHYSICAL EXAMINATION: GENERAL: Alert, awake, and oriented x3. HEENT: PERRLA. NECK: Range of motion is full in all directions. No tenderness to the paracervical muscles. No adenopathy. LUNGS: Clear. HEART: Regular. ABDOMEN: Benign. BACK: Range of motion is decreased in flexion and extension with tenderness to paraspinal muscles with wound VAC seen and placed with tenderness to palpation on the buttock area. EXTREMITIES: No cyanosis. No clubbing. No edema. NEURO: No changes. SONIA IRAHETA Jun 13, 2016 10:43
--- NOTE | 2016-06-13 10:56 | General Progress Note ---
Assessment/Plan Problem List: (1) Intractable back pain Assessment & Plan: s/p I+D of buttocks POD#6 s/p stage 2 surgery POD#3 Pain control Supp care f/u Extensive lab workup to r/o DAFNE syndrome given classical symptoms and presentation f/u blood cultures Cont IV cipro Will d/w SW options re placement: SNF, [facility], ARU Total of 31 mins of additional time was spent with this patient, above and beyond the normal face to face visit time ICD Codes: M54.9 - Dorsalgia, unspecified SNOMED: 980283199 (2) Anemia due to acute blood loss Assessment & Plan: Cont venofer 100mg IV daily s/p Transfuse 2u prbcs with appropriate post transfusion rise in hgb ICD Codes: D62 - Acute posthemorrhagic anemia SNOMED: 494217281 (3) Anemia of chronic illness Assessment & Plan: Cont venofer Pt 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 s/p 2u prbc transfusion yesterday. No chest pain or dyspnea, postop pain well controlled. No lightheadedness or dizziness, denies headache Objective Last 24 Hour Vital Signs Date Time Temp Pulse Resp B/P Pulse Ox O2 Delivery O2 Flow Rate FiO2 06/13/16 08:45 20 06/13/16 08:18 98.2 109 19 114/69 97 Room Air 06/13/16 04:45 20 06/13/16 00:45 20 06/13/16 00:00 97.9 102 20 110/64 97 Room Air 06/12/16 20:45 18 06/12/16 20:00 98.6 101 20 112/58 99 Room Air 06/12/16 17:30 98.4 104 18 107/67 99 Room Air 06/12/16 16:45 18 06/12/16 15:44 97.9 115 20 115/73 99 Room Air 06/12/16 12:45 18 06/12/16 11:49 97.9 06/12/16 11:40 98.4 109 18 112/65 99 Room Air Intake and Output 06/12/16 06/13/16 19:00 07:00 Intake Total 1000 ml 500 ml Output Total 865 ml 553 ml Balance 135 ml -53 ml Intake Oral 500 ml IV Total 500 ml 500 ml Output Urine Total 800 ml 375 ml Drainage Total 65 ml 178 ml # Voids 5 Laboratory Tests 06/13/16 07:10: White Blood Count 13.6H, Red Blood Count 3.20L, Hemoglobin 9.9#L, Hematocrit 29.5#L, Mean Corpuscular Volume 92, Mean Corpuscular Hemoglobin 30.8, Mean Corpuscular Hemoglobin Concent 33.5, Red Cell Distribution Width 12.3, Platelet Count 277, Mean Platelet Volume 5.9L, Neutrophils (%) (Auto) 53.9, Lymphocytes ( %) (Auto) 36.7, Monocytes (%) (Auto) 7.2, Eosinophils (%) (Auto) 1.5, Basophils (%) (Auto) 0.7, Sodium Level 140, Potassium Level 4.0, Chloride Level 100, Carbon Dioxide Level 29, Anion Gap 11, Blood Urea Nitrogen 5L, Creatinine 0.6, Estimat Glomerular Filtration Rate > 60, Glucose Level 85, Calcium Level 8.9 Height (Feet): 5 Height (Inches): 0.00 Weight (Pounds): 146 Objective General: alert, cooperative, no distress, appears stated age Head: normocephalic, without obvious abnormality, atraumatic Eyes: conjunctivae/corneas clear. PERRL, EOM's intact Throat: lips, mucosa, and tongue normal. MMM Neck: supple, symmetrical, trachea midline, and no JVD Lungs: clear to auscultation bilaterally Heart: regular rate and rhythm, S1, S2 normal, no murmur, click, rub or gallop Abdomen: soft, non-tender, non-distended, bowel sounds normal; no masses or organomegaly Extremities: extremities normal, atraumatic, no cyanosis or edema Pulses: 2+ and symmetric Skin: skin color, texture, turgor normal; no rashes or lesions Neurologic: grossly normal, no focal deficits SADIE REYES Jun 13, 2016 10:56
--- NOTE | 2016-06-13 11:24 | General Progress Note ---
Progress Note Progress Note pt without any c/o and reports resolution of pre-op symptoms and pain AF/VSS H/H improved appropriately to 9.5/28 s/p 2 U PRBC tranfusion PE: incisional VAC in place JPs appropriate SS (-) collections/signs of infection A/P. 1. OOB/ DVT ppx/cont Abx 2. ARI teaching; cont all 5 ARI's 3. switched to Provena Plus home incisional VAC 5. d/c home Mon with 2 weeks Cipro 500 PO BID and pain Rx 6. no showers until all drains are out 7. limit supine time to 4 hrs/24 hrs; minimal sitting 8. f/u out pt next Sat 9. transition to oral pain rx 10. pt NOT cleared for airlines flight under any circumstances or extended sitting; this was discussed with pt in length and she risks significant complications if she ignores this recommendation Josephine Davenport M.D. Jun 13, 2016 11:24
[2016-06-13 12:03] VITALS: BP 105/66
[2016-06-13] MEDS ORDERED: PCA shift volume MISC SCH (15:00)
[2016-06-13] MEDS: Norco 10mg/325mg tab ORAL PRN (17:03)
[2016-06-13 20:00] VITALS: BP 118/62
[2016-06-13] MEDS: Iron Sucrose 100 MG in NS 55 ML IVPB SCH (20:23)
[2016-06-13] MEDS: Ciprofloxacin 500mg tab ORAL SCH (20:23)
[2016-06-13] MEDS: HYDROmorphone 1mg/ml Carpuject IVP PRN (22:27)
[2016-06-14] VITALS: BP 112/59
--- NOTE | 2016-06-14 01:39 | Progress Note ---
DATE: 06/13/2016 SUBJECTIVE: The patient was in her room. She was in no apparent distress. She did not have any pain and stated that she is doing much better than prior to the operation. The pain has decreased according to the staff. Yesterday, she has had problems with the nurses. She is going to leave the hospital against medical advice and go back to [place]. The patient today is calmer and more cooperative with the staff. The patient has been always uncooperative with this physician. The patient is not agitated nor uncooperative with the staff. MENTAL STATUS EXAMINATION: Alert and oriented x4. Mood is neutral. Affect is blunted. Congruent with mood and appropriate. Thought process is concrete. Thought content, no suicidal or homicidal ideation. No delusions. No auditory or visual hallucinations. No suicidal or homicidal ideation. Cognition is intact. Insight and judgment is fair. ASSESSMENT: The patient is stable. She understands the of leaving the hospital against medical advice and stated that she is not planning to leave. I have recommended anxiolytics, however, the patient is reluctant to take any anxiolytics. PLAN: 1. The patient was provided with supportive therapy and reality orientation. 2. We will continue to follow. Tavares Carolina M.D. DR: Veronica JOB#: [id number] CC:
[2016-06-14] MEDS: HYDROmorphone 1mg/ml Carpuject IVP PRN (02:55)
[2016-06-14] MEDS: LR 1000ml 1,000 ML IV SCH (06:00)
[2016-06-14 07:57] VITALS: BP 101/60
[2016-06-14 08:14] LABS: BASOPHILS % (AUTO) 0.6 % (0.0-2.0); EOSINOPHILS % (AUTO) 1.6 % (0.0-3.0); LYMPHOCYTES % (AUTO) 38.3 % (20.0-45.0); MEAN CORPUSCULAR HEMOGLOBIN 30.6 PG (27.0-31.0); MEAN CORPUSCULAR HGB CONC 33.1 G/DL (32.0-36.0); MEAN CORPUSCULAR VOLUME 93 FL (80-99); MEAN PLATELET VOLUME 5.8 FL (6.5-10.1); MONOCYTES % (AUTO) 5.1 % (1.0-10.0); NEUTROPHILS % (AUTO) 54.3 % (45.0-75.0); PLATELET COUNT 371 K/UL (150-450); RED BLOOD COUNT 3.52 M/UL (4.20-5.40); RED CELL DISTRIBUTION WIDTH 12.1 % (11.6-14.8); WHITE BLOOD COUNT 12.7 K/UL (4.8-10.8)
[2016-06-14 08:25] LABS: ANION GAP 12 (5-15); CARBON DIOXIDE 28 mEQ/L (20-30); CHLORIDE 99 mEQ/L (98-107); CREATININE 0.6 mg/dL (0.5-0.9); GLOMERULAR FILTRATION RATE > 60 mL/min (>60); HEMOLYSIS 0; SODIUM 139 mEQ/L (135-145)
[2016-06-14] MEDS: Docusate 100mg cap ORAL SCH (08:36)
[2016-06-14] MEDS: Ciprofloxacin 500mg tab ORAL SCH (08:37)
[2016-06-14] MEDS: Norco 10mg/325mg tab ORAL PRN (08:37)
--- NOTE | 2016-06-14 08:37 | General Progress Note ---
Assessment/Plan Assessment/Plan (1) B/L buttock and back soft tissue necrosis, cellulitis (2) S/p staged debridement of b/l buttock and back necrotic soft tissue, flap advancement (3) Intractable pain The patient will continue on the Dilaudid IV [place] and Neurontin. The patient was discussed with Dr. Frank and Dr. Frank concurred. Subjective Date patient seen: Jun 14, 2016 Time patient seen: 07:15 - am Allergies: Coded Allergies: PENICILLINS (Verified Allergy, Unknown, 06/05/16) Subjective REVIEW OF SYSTEMS: Denies rash, fever, chills, sweating, dizziness, drowsiness, blurred vision, sore throat, or change in her weight. No shortness of breath or chest pain. No nausea, vomiting, diarrhea, or blood in the stool or urine. No bowel or bladder incontinence. No dysuria. Complaining of back and buttock pain. SUBJECTIVE: She reports that the pain has reduced and is more comfortable rating it a 6/10 at this time. Objective Last 24 Hour Vital Signs Date Time Temp Pulse Resp B/P Pulse Ox O2 Delivery O2 Flow Rate FiO2 06/14/16 07:57 97.9 100 21 101/60 97 Room Air 06/14/16 00:00 97.3 96 14 112/59 94 Room Air 06/13/16 20:00 97.7 97 20 118/62 97 Room Air 06/13/16 12:03 97.9 94 20 105/66 96 Room Air 06/13/16 08:45 20 Intake and Output 06/13/16 06/14/16 19:00 07:00 Intake Total 920 ml 240 ml Output Total 71 ml 95 ml Balance 849 ml 145 ml Intake Oral 520 ml 240 ml IV Total 400 ml Drainage Total 71 ml 95 ml # Voids 2 4 # Bowel Movements 2 Laboratory Tests 06/14/16 07:45: White Blood Count 12.7H, Red Blood Count 3.52L, Hemoglobin 10.8L, Hematocrit 32.5L, Mean Corpuscular Volume 93, Mean Corpuscular Hemoglobin 30.6, Mean Corpuscular Hemoglobin Concent 33.1, Red Cell Distribution Width 12.1, Platelet Count 371, Mean Platelet Volume 5.8L, Neutrophils (%) (Auto) 54.3, Lymphocytes ( %) (Auto) 38.3, Monocytes (%) (Auto) 5.1, Eosinophils (%) (Auto) 1.6, Basophils (%) (Auto) 0.6, Sodium Level 139, Potassium Level 4.0, Chloride Level 99, Carbon Dioxide Level 28, Anion Gap 12, Blood Urea Nitrogen 6L, Creatinine 0.6, Estimat Glomerular Filtration Rate > 60, Glucose Level 110H, Calcium Level 9.0 Height (Feet): 5 Height (Inches): 0.00 Weight (Pounds): 146 Objective PHYSICAL EXAMINATION: GENERAL: Alert, awake, and oriented x3. HEENT: PERRLA. NECK: Range of motion is full in all directions. No tenderness to the paracervical muscles. No adenopathy. LUNGS: Clear. HEART: Regular. ABDOMEN: Benign. BACK: Range of motion is decreased in flexion and extension with tenderness to paraspinal muscles with wound VAC seen and placed with tenderness to palpation on the buttock area. EXTREMITIES: No cyanosis. No clubbing. No edema. NEURO: No changes. SONIA IRAHETA Jun 14, 2016 08:37
[2016-06-14 12:15] VITALS: BP 107/60
[2016-06-14] MEDS ORDERED: FERROUS SULFAT325 MG ORAL (13:35)
[2016-06-14] MEDS ORDERED: COLACE100 MG ORAL (13:35)
[2016-06-14] MEDS ORDERED: MIRALAX17 G2 ORAL (13:35)
[2016-06-14] MEDS ORDERED: CIPRO500 MG PO (13:35)
[2016-06-14] MEDS ORDERED: NORCO 10-325 T1 EACH ORAL (13:36)
--- NOTE | 2016-06-14 13:59 | Discharge Summary ---
Discharge Summary Hospital Course Date of Admission Jun 06, 2016 at 18:31 Date of Discharge Jun 14, 2016 Admitting Diagnosis intractable pain Reason for Hospitalization: intractable low back pain DAYTON Benito is a 30 year old female who was admitted on Jun 06, 2016 at 18: 31 for Intractable Pain Consultations Plastic Surgery Procedures See Operative Reports Hospital Course 30 y/o female with hx of silicone injections into the buttocks area, presented with uncontrolled low back pain, radiculopathy, buttocks pain/burning. Admitted for pain control and further evaluation. Lab workup was done to r/o DAFNE syndrome. Plastic surgery was consulted, MRI showed granulomas throughout. She was taken to surgery for extensive debridement of soft tissue necrotic areas, no periop or postop complications. After stability of the wound, ability to ambulate and tolerating PO pain meds, pt was dced home with a wound vac and drains in place on Cipro, iron and norco, will f/u with plastic surgery on Tuesday, 06/18 for outpt followup. Discharge Medications Continued Medications: Ciprofloxacin* (Cipro*) 500 Mg Tablet 500 MG PO BID, #28 TAB Docusate Sodium* (Colace*) 100 Mg Capsule 200 MG ORAL TWICE A DAY, #28 CAP Ferrous Sulfate* (Ferrous Sulfate*) 325 Mg Tablet 325 MG ORAL TWICE A DAY, #28 TAB 0 Refills Hydrocodone Bit/Acetaminophen 10-325* ([place] 10-325*) 1 Each Tablet 1 TAB ORAL Q6H PRN for For Pain, #30 TAB 0 Refills PRN PAIN No Known Medications* (NKM - No Known Medications*) . 0 ., 0 Refills Polyethylene Glycol 3350* (Miralax*) 17 Gm Powd.pack 17 GM ORAL DAILY, PACKET Discharge Condition Upon Discharge: stable Discharge Disposition Patient was discharged to home Discharge Diagnoses: (1) Anemia due to acute blood loss (2) Intractable back pain (3) Anemia of chronic illness SADIE REYES Jun 14, 2016 13:59
[2016-06-14 14:28] LABS: OTHERS PATHOLOGIST COMMENT
[2016-06-14] MEDS ORDERED: Iron Sucrose 100 MG in NS 110 ML IVPB SCH (21:00)
--- NOTE | 2016-06-15 00:39 | Operative Note - Dictated ---
DATE OF OPERATION: 06/07/2016 SURGEON: Josephine Davenport M.D. REHABILITATION THERAPIST SURGEON: Trae Sandy M.D. ANESTHESIOLOGIST: Dr. Harris. ANESTHESIA: General endotracheal tube anesthesia. PREOPERATIVE DIAGNOSES: As follows: 1. Bilateral buttock, hip, and soft tissue necrosis secondary to foreign body reaction. 2. Cellulitis of the bilateral buttocks. POSTOPERATIVE DIAGNOSES: As follows: 1. Bilateral buttock, hip, and soft tissue necrosis secondary to foreign body reaction. 2. Cellulitis of the bilateral buttocks. PROCEDURE PERFORMED: As follows: 1. Staged radical removal with debridement of foreign material from bilateral buttocks, hips, and back. 2. Elevation and delay of right inferiorly base gluteal fasciocutaneous flap. 3. Elevation and delay of left inferiorly based gluteal fasciocutaneous flap. 4. Elevation and delay of lumbar spine fasciocutaneous flap. 5. Radical resection of 221 cm2 of necrotic right buttock soft tissue necrosis mass. 6. Radical resection of 208 cm2 of necrotic left buttock soft tissue mass. 7. Radical resection of 32 cm2 of necrotic left back soft tissue mass. 8. Radical resection of 24 cm2 of necrotic left back and necrotic soft tissue mass. 9. Debridement of bilateral gluteus nyla necrotic muscle. 10. Pulse lavage irrigation of bilateral buttocks. 11. VAC placement to bilateral buttocks. INDICATION FOR PROCEDURES: As follows: This is a 30-year-old female who was previously dictated in the emergency consultation on yesterday when she was admitted to the hospital complaining of significant and severe expressive incapacitating bilateral buttock pain as well as cellulitis. The patient was evaluated and cleared by Dr. Newton and the medical team and treated with intravenous antibiotics versus low-grade cellulitis. The patient was also worked up with blood work to rule out DAFNE syndrome seen by psychiatrist and medically optimize the operation. MRI of the lumbar spine and pelvis showed significant infiltration of the subcutaneous tissues of the lumbar spine as well as bilateral buttocks including infiltration of bilateral gluteus nyla muscles. This was the inciting cause of the patient's recurrent infections of cellulitis as well as the likely cause of the acute paresthesias and numbness of her legs, which she presented to the emergency room with some pressure on her paraspinal large as well as the sciatic nerve. The psychiatrist was asked to clear the patient, so that she understands this. She is about to undergo a distal the following at this is a staged partial radical removal of foreign material that was injected into her buttocks and hips, which likely migrated into her back and other parts of the body. There is no guarantee she will get better with the possibility she will get worse and the silicone may migrate and I certainly was not going to take all of that out as that would be impossible to do, as there is also some likelihood that some of the silicon has already migrated from her buttocks to her back and other parts of the body. I also explained to the patient that this has a potential for being cosmetically disfiguring where it could be a very poor cosmetic outcome. The benefits of the proposed operation would be debulk and remove as much of the foreign body and it is possible. It will take the pressure off of her nerves, the spine, the legs, and her buttocks and this will also be obtained and will also allow her immune system reset. So, she is not as prone to recurrent infections and opportunistic infections and to prevent further migration of the material to other parts of the body. In the past day or so, she has been treated with intravenous antibiotics and worked up for DAFNE syndrome. She has been under pain control for the pain management team for incapacitating significant bilateral buttock and back pain. I told the patient this is going to be a staged procedure. The goal would be two operations, the first time today where I would raise and delay fasciocutaneous flaps in the back and bilateral buttocks. Second see the viability of the skin flaps since there was an incredible amount of debulking that was going to occur. I said for such a large amount of debulking was going to occur these flaps may become necrotic at their distal edges that is my reasoning in elevating and delaying her flaps and treating her with a VAC in the interim to have the benefit of re-evaluating the flaps and see if they need to be debrided and the VAC would also suck out the bacteria and any foreign material. I explained to the patient is unknown how much of the foreign material I would take out. I told I would take out whatever is visible and palpable in a safe manner. Again, it was reiterated this could be cosmetically disfiguring. She may have poor scarring. Her wound may break out. She may need multiple reconstructive surgeries over the next many years and that her buttocks may come out significantly deformed. I told her conversely if she did nothing, she is at high risk of having a skin and eventually her whole buttocks necrosed and she would eventually require much more radical surgery. The risks and benefits of the proposed operation including but not limited to bleeding, hematoma, seroma, infection, DVT, PE, WI, , necrosis of the skin flaps, open wounds, delayed healing, hypertrophic scarring, keloid scarring, skin necrosis, damage to sensory to motor nerves, difficulty ambulating, chronic pain and embolization of the foreign material to other parts of body were discussed with the patient and all questions answered. DESCRIPTION OF THE PROCEDURE: The patient was taken to the operating room, gave heparin subcutaneously as well as preoperative antibiotics were confirmed. In the preop holding area, I marked a low transverse incision that was about 37 cm in length and 5 cm superior to the most superior aspect of the gluteal cleft. I correlated the MRI findings in the clinical exam showed mass like collection material and tender nodules and this was marked in the preop holding area. In the operating room, after SCDs were placed prior to induction of general anesthesia, she was placed in a prone position with appropriate positioning and padding of of her extremity. The buttocks and back were then prepped and draped in the usual sterile manner. The anus was protected with a blue towel and [place] dressing. In the preop holding area. The preop holding area markings were reinforced. I explained to the patient through this incision, which was a limited incision, I would debulk as much necrotic soft tissue as I could. It was very challenging and complex operation since the foreign material was evident in the MRI very inferiorly down her buttocks as well as the L2 of her spine and this adds additional complexity. Using a #10 scalpel, we dissected down through the skin and used electrocautery and dissected all way down to the deep muscle fascia of the gluteus nyla muscle and the paraspinal muscles. We then elevated three fasciocutaneous flaps. We elevated superiorly based lumbar fasciocutaneous flap about 10 cm to 12 cm correlating to the MRI and tender nodules on physical exam up to L2. We then elevated left and right inferiorly based gluteal fasciocutaneous flap. Thus far down as we could with the instruments we had and we were able to dissect about 20 cm. We then on a plane just deep to isa's fascia dissected the skin flaps off the soft tissue and then with a combination of sharp dissection and electrocautery, we were able to debulk a large amount of fat necrosis, silicone scar tissue, and silicone granulomas silicone that was liquid that we encountered. We were able to debulk this and bilateral buttocks as well as the back. There were 208 cm2 of necrotic soft tissue from the left buttock 221 cm2 of necrotic soft tissue from the right buttock, 32 cm2 of necrotic soft tissue from the left back and 24 cm2 necrotic soft tissue from the right back, which we debrided in this manner and sent to the lab. After doing this, we noticed there was some necrosis of bilateral gluteus nyla muscles and this was debrided sharply and with electrocautery. We then jarrett pricked through the muscle and any silicone granulomas we can feel were popping, removed. The superficial silicone granulomas that were just below the dermis would pop. We obtained hemostasis with electrocautery. After irrigating with 2 L of antibiotic irrigation, we then reconfirmed hemostasis, popped any more of the superficial silicone. We were quite pleased with the initial debulking which could not going further inferiorly. After obtaining hemostasis, we placed two back sponges underneath the flaps, partially stapled closed and set the VAC at 125 mm to two VAC machines and flipped the patient over, extubated her and sent to recovery room in stable condition. CONDITION: Findings were as above. SPECIMENS: Were of there were four of them, left than right back necrotic soft tissue and then left and right buttock necrotic soft tissue. Specimens were as above. Drains worked back VAC. sponge x2 bilateral buttocks. ESTIMATED BLOOD LOSS: 300 mL. COMPLICATIONS: None. CONDITION: Stable. Josephine Davenport M.D. DR: TANI JOB#: [id number] CC:
--- NOTE | 2016-06-15 00:39 | Consultation ---
DATE OF CONSULTATION: DATE OF CONSULTATION: 06/07/2016 SURGEON: Josephine Davenport M.D. HISTORY OF PRESENT ILLNESS: This is a 30-year-old female, who presented to the emergency room of [facility] yesterday complaining of severe bilateral buttock and back pain, some burning and itching, as well as fevers and chills, redness, and warmth of bilateral buttocks over the past couple of days. The patient has a history of silicone injections to bilateral buttocks and hips, of some foreign material, likely silicone, several years ago. The patient has had intermittent problems over the past few years that is now worsening. I was consulted by Dr. Newton of a medical team, who admitted the patient for buttock cellulitis and foreign material, as well as the retractable back and buttock pain. For possible soft tissue necrosis, I was just called in emergently and this is why I came in to evaluate and treat the patient. PHYSICAL EXAMINATION: The patient has significantly tender, red, and warm to bilateral buttocks, tender and painful nodules, multiple ones in each buttock. There were some small areas of hyperpigmentation and patchy skin with minimal bilateral inguinal lymphadenopathy. There was warmth and erythema of both buttocks consistent with early cellulitis. The lumbar back was also tender to palpation and there was a masslike culture material underneath. The patient complained of significant limitations in ambulation and significant pain with sitting, as well as paresthesia, and acute numbness of her right leg, greater than left. The patient had MRIs of the lumbar spine and pelvis, which showed significant infiltration of the soft tissue and soft tissue necrosis of bilateral buttocks, also involving gluteus nyla muscles, as well as migrating up to the lumbar L2 spine level. The patient also had blood work to rule out DAFNE syndrome and was treated with IV antibiotics for cellulitis. I explained to the patient that based on MRIs and physical exam, I recommended a stage surgical emergent debridement of the soft tissue of bilateral buttocks and the back, with a back in between operations followed by closure over drains. I explained to the patient that this was likely the inciting cause of recurrent infections and incapacitating pain to which she presented to the emergency room with. The patient elected to proceed with surgery. I will dictate a separate operative report. Josephine Davenport M.D. DR: ARIEL JOB#: [id number] CC:
--- NOTE | 2016-06-15 05:59 | Operative Note - Dictated ---
DATE OF OPERATION: 06/10/2016 SURGEON: Kanwal Sandy M.D. OPERATIONS RECRUITER SURGEON: Josephine Davenport M.D. ANESTHESIA: General endotracheal tube anesthesia. ANESTHESIOLOGIST: Dr. Harris. PREOPERATIVE DIAGNOSES: 1. Open bilateral buttock wound, status post radical debridement and resection of necrotic soft tissue. 2. Bilateral buttock, hip, and back necrotic soft tissue secondary to foreign body. 3. Cellulitis of bilateral buttocks. POSTOPERATIVE DIAGNOSES: 1. Open bilateral buttock wound, status post radical debridement and resection of necrotic soft tissue. 2. Bilateral buttock, hip, and back necrotic soft tissue secondary to foreign body. 3. Cellulitis of bilateral buttocks. OPERATION PERFORMED: 1. Staged radical partial debridement of foreign bodies from the lumbar back as well as bilateral buttocks and hips. 2. Radical resection of 330 sq. cm of necrotic left buttock and hip soft tissue mass. 3. Radical resection of 375 sq. cm of necrotic right buttock and hip necrotic soft tissue mass. 4. Lumbar spine fasciocutaneous advancement flap. 5. Right gluteal fasciocutaneous advancement flap. 6. Left gluteal fasciocutaneous advancement flap. 7. Complex closure of 37 cm open VAC wound. INDICATION FOR THE OPERATION: This is a 30-year-old female, who was previously operated on three days prior. In the interim, the patient has been treated for the VAC therapy and before her vitals remained stable. Her hemoglobin has been slowly coming down. She has been on IV antibiotics for cellulitis. Today, the plan was to take the patient back for a planned second stage look for further debridement of necrotic soft tissue from bilateral buttocks and hips as well as the back and removal of foreign material and fasciocutaneous advancement flap closure over drains. Risks and benefits of the operation were fully discussed with the patient and the patient agreed and signed the informed consent. At this point, the patient was refusing to have blood transfusion. Explained to the patient that if she needed it emergently during this operation, it will be given to her or/and subsequently after the operation if her hemoglobin continuously goes down and she is symptomatic, she would require blood. DESCRIPTION OF THE PROCEDURE: The patient was taken to the operating room in the supine position and placed under general endotracheal tube anesthesia. Perioperative antibiotics were confirmed. SCDs were placed on bilateral lower extremities. She was then prepped in the prone position. After appropriate positioning and padding of her arms and the rest of the body, we removed the VAC that was placed prior. We then prepped and draped the entire area in the usual clean and sterile manner. We used the blue towel and [place]ob[place] dressing over the anus to block any bowel flow. We then started the operation by exploring bleeding, but there was nothing significant. We started the operation by first using clamps and we measured proposed skin excisions from bilateral buttocks and the back and re-marked the proposed line of excision. Using a #10 scalpel, we cut through the skin and electrocautery to remove skin and soft tissue. We then with the aid of a lighted retractor further elevated the flaps superiorly to the bilateral buttocks. We did this all the way down to the inferior gluteal crease. We then elevated the plane and dissection above the gluteus nyla muscle. We then debrided some more foreign body and necrotic soft tissue from bilateral buttocks and hips. There was 330 sq. cm of necrotic left buttock and hip soft tissue mass, which we debrided as well as 375 sq. cm of right buttock and necrotic soft tissue mass, which we debrided in this manner. This was sent to the laboratory. We made sure we obtained hemostasis with the electrocautery. We then had to debride some of the, I believe, nyla muscles which were necrotic. We also jarrett picked it with the muscle and popped them with silicone granulomas. We then incised the deep fascia and advanced that with bilateral gluteus flap superiorly, and we trimmed with the lumbar flap, which we previously elevated. We further elevated it after cutting out skin and performed the advancement flap closure. This way, we closed out from the space with the progressive tension suturing advancement flap technique with the #0 PDS sutures. Prior to doing this, we pulse lavaged 2 liters of antibiotics irrigation, removed as much foreign material as we could safely and obtained hemostasis. We then placed two #19 Uzbek Marc drains, one in each buttock in a dependent position, two ARI drains, one in each buttock in the mid portion of the buttock and one ARI drain underneath the back flap, took them out to separate anterolateral stab incision superior to with 2-0 silk suture. There was a 37-cm long incision after we . We lined up an approximated Azul fascia and subcutaneous fascia with #0 Vicryl suture approximated the deep dermis in interrupted fashion with 2-0 Vicryl sutures. We then closed the epidermis with a running 3-0 Monocryl suture. We then placed a incisional VAC. After doing this, there was good cap refill to the skin flaps. There was minimal tension. Nice contour was achieved. We were very pleased with the results. She was flipped over into the supine position, extubated, and transferred to recovery room in stable condition. FINDINGS: As above. SPECIMENS: Left and right buttock and hip necrotic soft tissue as well as skin from the back and buttock. ESTIMATED BLOOD LOSS: 300 mL. DRAINS: A 19 U[place]bek Marc x2 and 10 mm ARI x3 in the buttocks and back. COMPLICATIONS: None. CONDITION: Stable. Kanwal Sandy M.D. DR: Michael JOB#: [id number] CC:
== END 2016-06-14 16:00 | disposition home or self-care (01) | DRG 574 ==
LOC: EMR 14:56 → EDBEDREQ 18:22 → 4E 18:31
DX: L03.317 Cellulitis of buttock (principal); D62 Acute posthemorrhagic anemia; L03.312 Cellulitis of back [any part except buttock and flank]; Z88.0 Allergy status to penicillin; L92.3 Foreign body granuloma of the skin and subcutaneous tissue
CPT/HCPCS: 36415; 72148; 72195; 80048; 81025; 82164; 82784; 84165; 85007; 85025; 85610; 85613; 85651; 85730; 86039; 86140; 86162; 86235; 86332; 86334; 86360; 86431; 86850; 86900; 86901; 86920; 87081; 94003; 94150; J2250; J2405; J2765; S0077